=== PATIENT | male | born 1960 | race Caucasian/White ===

== ENCOUNTER 2017-05-20 13:39 | Emergency (ER) | payer MEDICARE ==
[2017-05-20] MEDS ORDERED: ISOVUE-370 76%-LOCM 1 ML ONE (13:55)
[2017-05-20 14:28] LABS: #Basophils 0.1 thou/uL (0.0-0.2); #Eosinphils 0.3 thou/uL (0.0-0.7); #Lymphocytes 2.1 thou/uL (1.20-3.40); #Monocytes 0.6 thou/uL (0.11-0.59); #Neutrophils 4.4 thou/uL (1.40-6.50); %Basophils 0.9 % (0.0-1.0); %Eosinophils 4.1 % (0.0-10.0); %Monocytes 7.9 % (0.0-10.0); Hematocrit 46.7 % (42.0-52.0); Mean Platelet Volume 6.9 fL (7.4-10.4); Red Blood Cell (RBC) Count 5.04 mill/uL (4.70-6.10); White Blood Cell (WBC) Count 7.4 thou/uL (4.8-10.8)
[2017-05-20 14:33] LABS: PTT 30.7 SEC (22.9-36.1); Prothrombin Time 13.1 SEC (12.0-14.7)
[2017-05-20 14:43] LABS: Lactic Acid - Sepsis 1.3 mmol/L (0.5-2.2)
[2017-05-20 14:47] LABS: ALT (SGPT) 12 U/L (8-55); AST (SGOT) 12 U/L (5-34); Alkaline Phosphatase 160 U/L (40-150); Anion Gap 11 mmol/L (10-20); BUN (Urea Nitrogen) 17 mg/dL (8.4-25.7); Bilirubin, Total 0.3 mg/dL (0.2-1.2); Calc. Creatinine Clearance 0 mL/min (70-130); Calcium 9.6 mg/dL (7.8-10.44); Carbon Dioxide 27 mmol/L (22-29); Chloride 105 mmol/L (98-107); Estimated GFR-MDRD Greater than 90; Globulin 3.4 g/dL (2.4-3.5); Protein, Total 7.4 g/dL (6.0-8.3)
--- NOTE | 2017-05-20 17:13 | CT ---
CT OF BRAIN WITHOUT AND WITH CONTRAST 05/20/17 COMPARISON: None. HISTORY: Fever and lesion on scalp for several months. TECHNIQUE: Multiple contiguous axial images were obtained in a CT of the brain without and with IV contrast. FINDINGS: There is encephalomalacia in the right parietal lobe. No abnormal intracranial enhancement is seen. T here are scattered hypodensities in the subcortical and periventricular white matter likely secondary to small vessel ischemic disease. There is no evidence of hydrocephalus, intracranial hemorrhage, or extra-axial fluid collection. Postsurgical changes are seen in the right parietal calvarium. No enhancing scalp masses are seen. Th e visualized paranasal sinuses and mastoid air cells are well aerated. IMPRESSION: Postsurgical changes of the right parietal region with right parietal encephalomalacia. No acute intr acranial process is identified. POS: [facility]
== END 2017-05-20 22:04 ==
LOC: ERS 13:39
DX: L98.9 Disorder of the skin and subcutaneous tissue, unspecified (principal); K21.9 Gastro-esophageal reflux disease without esophagitis; F32.9 Major depressive disorder, single episode, unspecified; I25.2 Old myocardial infarction; E78.5 Hyperlipidemia, unspecified
CPT/HCPCS: 36415; 70470; 80053; 83605; 85025; 85610; 85730; 96360; 96361

== ENCOUNTER 2017-07-15 16:58 | Emergency (ER) | payer MEDICARE ==
--- NOTE | 2017-07-15 18:43 | RAD ---
AP PELVIS: 07/15/17 HISTORY: Fall. Found down. Pelvic pain. The pelvis appears intact. No evidence of fracture identified. Femoral necks are not adequately evalu ated due to poor positioning. IMPRESSION: No acute fracture identified. POS: [facility]
== END 2017-07-15 20:47 | disposition home or self-care (01) ==
LOC: ERS 16:58
DX: S70.01XA Contusion of right hip, initial encounter (principal); I25.2 Old myocardial infarction; K21.9 Gastro-esophageal reflux disease without esophagitis; E78.5 Hyperlipidemia, unspecified; I10 Essential (primary) hypertension; M62.838 Other muscle spasm; F32.9 Major depressive disorder, single episode, unspecified; K59.00 Constipation, unspecified; W06.XXXA Fall from bed, initial encounter
CPT/HCPCS: 72170

== ENCOUNTER 2017-09-23 16:40 | Emergency (ER) | payer MEDICARE, OTHER ==
[2017-09-23 18:22] LABS: #Basophils 0.1 thou/uL (0.0-0.2); #Eosinphils 0.2 thou/uL (0.0-0.7); #Lymphocytes 1.5 thou/uL (1.20-3.40); #Monocytes 0.6 thou/uL (0.11-0.59); #Neutrophils 6.3 thou/uL (1.40-6.50); %Basophils 0.8 % (0.0-1.0); %Eosinophils 2.6 % (0.0-10.0); %Lymphocytes 16.9 % (21.0-51.0); %Monocytes 7.1 % (0.0-10.0); %Neutrophils 72.5 % (42.0-75.0); Hemoglobin 14.4 g/dL (14.0-18.0); Mean Corpuscular Volume 88.3 fl (80.0-94.0); Mean Platelet Volume 6.8 fL (7.4-10.4); Platelet Count 250 thou/uL (130-400); RBC Distribution Width 12.7 % (11.5-14.5); Red Blood Cell (RBC) Count 4.81 mill/uL (4.70-6.10); White Blood Cell (WBC) Count 8.6 thou/uL (4.8-10.8)
[2017-09-23] MEDS ORDERED: Lorazepam 2 MG/ML VIAL ONE (18:34)
[2017-09-23 18:37] LABS: ALT (SGPT) 15 U/L (8-55); AST (SGOT) 18 U/L (5-34); Albumin 4.1 g/dL (3.5-5.0); Alkaline Phosphatase 140 U/L (40-150); Anion Gap 13 mmol/L (10-20); BUN (Urea Nitrogen) 14 mg/dL (8.4-25.7); Bilirubin, Total 0.2 mg/dL (0.2-1.2); Calc. Creatinine Clearance 0 mL/min (70-130); Calcium 9.4 mg/dL (7.8-10.44); Carbon Dioxide 24 mmol/L (22-29); Chloride 106 mmol/L (98-107); Estimated GFR-MDRD Greater than 90; Glucose 112 mg/dL (70-105); Protein, Total 7.1 g/dL (6.0-8.3); Sodium 139 mmol/L (136-145)
[2017-09-23] MEDS ORDERED: Adacel (T-DAP) 0.5 ML VIAL ONE (20:11)
[2017-09-23] MEDS ORDERED: Lidocaine 1% w/Epinephrine 1:100K 20 ML VIAL ONE (20:13)
--- NOTE | 2017-09-23 20:45 | RAD ---
UPRIGHT PORTABLE CHEST ONE VIEW: HISTORY: A 57-year-old male with a history of a fall out of bed. COMPARISON: 03/13/2016 FINDINGS: Inspiration is less than optimal with some minimal linear and parenchymal changes in both infrahilar regions and in the lung bases, having more the appearance of subsegmental atelectasis, although the p ossibility of some mild bibasilar pneumonitis cannot be excluded. No significant confluent process. No cardiomegaly or pleural effusion. IMPRESSION: Poor inspiration bilaterally with minimal horizontal linear and parenchymal changes in the infrahilar regions and lung bases, having more the appearance of subsegmental atelectasis. No pneumothorax or pleural effusion. No confluent pneumonia. POS: [facility]
--- NOTE | 2017-09-23 20:50 | CT ---
CERVICAL SPINE CT SCAN WITHOUT IV CONTRAST: 09/23/17 HISTORY: 57-year old male with history of fall landing on right side with facial contusions and concern for ce rvical spine injury. COMPARISON: 11/15/15. Multilevel cervical disc osteophytosis particularly at C6-C7 with some at least moderate canal, later al recess, and foraminal stenosis. No evidence for acute fracture or dislocation. Stable appearance f rom the prior study. IMPRESSION: Stable cervical spondylosis, most marked at C6-C7. No acute fracture or dislocation. POS: [facility]
--- NOTE | 2017-09-23 20:51 | CT ---
BRAIN CT WITHOUT IV CONTRAST: HISTORY: A 57-year-old male with a history of a fall at the rehab, landing on the right side, with facial cont usions. COMPARISON: 05/28/2016 FINDINGS: Old right parietal craniotomy change. 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 No focal mass or midline shift. No intraaxial or extraaxial hemorrhage. There is some minimal right frontal soft tissue swel ling. 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 No evidence for new mass or acute hemorrhage. Stable from prior study. POS: [facility]
--- NOTE | 2017-09-23 20:54 | CT ---
FACIAL BONE CT SCAN WITHOUT IV CONTRAST: 09/23/17 HISTORY: 57-year-old male with history of fall with facial lacerations and facial contusions. There is minimal soft tissue swelling over the forehead. No evidence for acute facial bone fracture. The orbits appear intact. Zygomatic arches appear intact. The mandible appears intact. IMPRESSION: No evidence for acute facial bone fracture. Minimal soft tissue swelling over the forearm. POS: [facility]
== END 2017-09-23 22:53 | disposition home or self-care (01) ==
LOC: ERS 16:40
DX: S01.81XA Laceration without foreign body of other part of head, initial encounter (principal); I25.2 Old myocardial infarction; K21.9 Gastro-esophageal reflux disease without esophagitis; E78.5 Hyperlipidemia, unspecified; G40.909 Epilepsy, unspecified, not intractable, without status epilepticus; I10 Essential (primary) hypertension; F32.9 Major depressive disorder, single episode, unspecified; Z79.891 Long term (current) use of opiate analgesic; Z79.899 Other long term (current) drug therapy; W06.XXXA Fall from bed, initial encounter
CPT/HCPCS: 12011; 70450; 70486; 71045; 72125; 80053; 85025; 90471; 90715; 93005; 96361; 96374; J2001; J2060

== ENCOUNTER 2017-11-12 11:04 | Emergency (ER) | payer MEDICARE ==
[2017-11-12 11:55] LABS: #Basophils 0.1 thou/uL (0.0-0.2); #Eosinphils 0.4 thou/uL (0.0-0.7); #Lymphocytes 1.6 thou/uL (1.20-3.40); #Monocytes 0.8 thou/uL (0.11-0.59); #Neutrophils 6.4 thou/uL (1.40-6.50); %Basophils 0.8 % (0.0-1.0); %Eosinophils 4.4 % (0.0-10.0); %Lymphocytes 16.9 % (21.0-51.0); %Monocytes 8.1 % (0.0-10.0); %Neutrophils 69.7 % (42.0-75.0); Hemoglobin 14.7 g/dL (14.0-18.0); Mean Corpuscular HGB CONC 32.5 g/dL (32.0-36.0); Mean Corpuscular Hemoglobin 28.6 pg (27.0-31.0); Mean Corpuscular Volume 87.8 fl (80.0-94.0); Mean Platelet Volume 7.1 fL (7.4-10.4); Platelet Count 282 thou/uL (130-400); RBC Distribution Width 13.1 % (11.5-14.5); Red Blood Cell (RBC) Count 5.16 mill/uL (4.70-6.10); White Blood Cell (WBC) Count 9.2 thou/uL (4.8-10.8)
[2017-11-12 12:11] LABS: ALT (SGPT) 16 U/L (8-55); AST (SGOT) 21 U/L (5-34); Albumin 3.9 g/dL (3.5-5.0); Alkaline Phosphatase 136 U/L (40-150); Anion Gap 14 mmol/L (10-20); BUN (Urea Nitrogen) 14 mg/dL (8.4-25.7); Bilirubin, Total 0.3 mg/dL (0.2-1.2); Calc. Creatinine Clearance 0 mL/min (70-130); Calcium 9.3 mg/dL (7.8-10.44); Carbon Dioxide 22 mmol/L (22-29); Chloride 105 mmol/L (98-107); Estimated GFR-MDRD Greater than 90; Globulin 3.4 g/dL (2.4-3.5); Glucose 137 mg/dL (70-105); Potassium 3.8 mmol/L (3.5-5.1); Protein, Total 7.3 g/dL (6.0-8.3); Sodium 137 mmol/L (136-145)
== END 2017-11-12 14:47 | disposition home or self-care (01) ==
LOC: ERS 11:04
DX: R56.9 Unspecified convulsions (principal); I25.2 Old myocardial infarction; I10 Essential (primary) hypertension; F32.9 Major depressive disorder, single episode, unspecified; K21.9 Gastro-esophageal reflux disease without esophagitis; E78.5 Hyperlipidemia, unspecified; Z79.899 Other long term (current) drug therapy; Z79.82 Long term (current) use of aspirin
CPT/HCPCS: 36415; 80053; 85025; 93005

== ENCOUNTER 2018-01-24 08:56 | Inpatient (IN) | payer MEDICARE, MEDICAID ==
[2018-01-24] MEDS ORDERED: Piperacillin/Tazobactam 3.375 GM VIAL ONE (09:21)
[2018-01-24] MEDS ORDERED: Acetaminophen 650 MG Suppository ONE (09:27)
[2018-01-24 09:46] LABS: Band 3 % (5-11); Lymphocytes 7 % (21-51); MDiff Complete? YES; Mean Corpuscular HGB CONC 34.5 g/dL (32.0-36.0); Mean Corpuscular Hemoglobin 30.1 pg (27.0-31.0); Mean Corpuscular Volume 87.3 fL (78.0-98.0); Mean Platelet Volume 6.4 fL (7.4-10.4); Monocytes 2 % (0-10); Neutrophil 87 % (42-75); Platelet Count 304 thou/uL (130-400); Red Blood Cell (RBC) Count 4.98 mill/uL (4.70-6.10); White Blood Cell (WBC) Count 9.4 thou/uL (4.8-10.8)
[2018-01-24 09:52] LABS: ALT (SGPT) 36 U/L (8-55); AST (SGOT) 32 U/L (5-34); Albumin 4.4 g/dL (3.5-5.0); Alkaline Phosphatase 217 U/L (40-150); Anion Gap 17 mmol/L (10-20); BUN (Urea Nitrogen) 10 mg/dL (8.4-25.7); Bilirubin, Total 0.7 mg/dL (0.2-1.2); CK (CPK) 47 U/L (30-200); Calc. Creatinine Clearance 0 mL/min (70-130); Calcium 9.7 mg/dL (7.8-10.44); Carbon Dioxide 20 mmol/L (22-29); Chloride 98 mmol/L (98-107); Estimated GFR-MDRD Greater than 90; Globulin 3.9 g/dL (2.4-3.5); Glucose 159 mg/dL (70-105); Potassium 4.2 mmol/L (3.5-5.1); Protein, Total 8.3 g/dL (6.0-8.3); Sodium 131 mmol/L (136-145)
[2018-01-24 09:59] LABS: Bilirubin Negative (Negative); Blood, Urine Negative (Negative); Clarity CLEAR (Clear); Glucose, Urine (Dipstick) Negative (Negative); Leukocyte Negative (Negative); Nitrite Negative (Negative); Protein, Urine (Dipstick) Trace mg/dL (Neg-Trace); Specific Gravity, Urine 1.022 (1.002-1.036); pH, Urine 6.5 (5.0-9.0)
[2018-01-24 10:02] LABS: CKMB 0.7 ng/mL (0-6.6); Troponin I 0.014 ng/mL (< 0.028)
--- NOTE | 2018-01-24 10:38 | RAD ---
SINGLE VIEW CHEST: Date: 01/24/18 COMPARISON: 09/23/17. HISTORY: Fever and altered mental status. Tachycardia. FINDINGS: Single view of the chest shows a normal sized cardiomediastinal silhouette. There is no evidence of c onsolidation, mass, or pleural effusion. The bones are unremarkable. IMPRESSION: No evidence of acute cardiopulmonary disease. POS: [facility]
--- NOTE | 2018-01-24 10:49 | CT ---
CT OF THE BRAIN WITHOUT CONTRAST: Date: 01/24/18 COMPARISON: 09/23/17. HISTORY: Altered mental status. TECHNIQUE: Multiple contiguous axial images were obtained in a CT of the brain without contrast. FINDINGS: There is a remote infarction in the right parietooccipital region. Scattered hypodensities in subcort ical and periventricular white matter are likely secondary to small vessel ischemic disease. No new l arge confluent infarction is seen. There is no evidence of hydrocephalus, intracranial hemorrhage, or extra-axial fluid collection. Postsurgical changes are seen in the right parietal calvarium. The paranasal sinuses are well aerated . IMPRESSION: No evidence of acute intracranial abnormality. POS: [facility]
[2018-01-24] MEDS ORDERED: Lorazepam 2 MG/ML VIAL ONE (11:32)
[2018-01-24] MEDS ORDERED: Vancomycin HCl 1 GM in Premix Bag 1 BAG IVPB SCH (13:15)
[2018-01-24 13:34] LABS: CRP (Inflammatory) 14.42 mg/dL (= or < 0.5); Phosphorus 3.4 mg/dL (2.3-4.7)
--- NOTE | 2018-01-24 14:50 | CT ---
CT OF THE ABDOMEN AND PELVIS WITHOUT CONTRAST: Date: 01/24/18 COMPARISON: 10/08/15. HISTORY: Altered mental status. TECHNIQUE: Multiple contiguous axial images were obtained in a CT of the abdomen and pelvis without contrast. Co asya reformats were performed. FINDINGS: The liver, gallbladder, kidneys, spleen, and pancreas are unremarkable, although evaluation is limite d on this noncontrast examination. No free air, free fluid, or stranding changes are seen in the abdo men or pelvis. The large and small bowel are unremarkable. The appendix is normal. No abdominal or pelvic lymphadeno william are seen. Postsurgical changes are seen in the spine. Atelectasis is seen in the lung bases. The abdominal wall soft tissues are unremarkable. IMPRESSION: No evidence of acute intra-abdominal/pelvic abnormality. POS: [facility]
[2018-01-24] MEDS: Piperacillin/Tazobactam 3.375 GM in Sodium Chloride 0.9% 100 ML IVPB SCH ×2 (16:57→20:37)
[2018-01-24] MEDS: Dextrose 5 % And 0.9 % NaCl 1,000 ML IV SCH (19:04)
[2018-01-24] MEDS: Acetaminophen 325 MG Suppository PR PRN (19:05)
[2018-01-24] MEDS: Vancomycin HCl 1.25 GM in Sodium Chloride 0.9% 250 ML 250 ML IVPB SCH (21:59)
[2018-01-24] MEDS: Famotidine/PF 20 mg/2ml Vial SLOW IVP SCH (22:21)
[2018-01-24] MEDS: lamoTRIgine 100 MG TAB PO SCH (22:21)
[2018-01-24] MEDS: Atorvastatin Calcium 10 MG TAB PO SCH (22:21)
[2018-01-24] MEDS: Tamsulosin HCl 0.4 MG CAP PO SCH (22:21)
[2018-01-24] MEDS: ALPRAZolam 0.5 MG TAB PO SCH (22:21)
--- NOTE | 2018-01-24 23:23 | HP ---
CHIEF COMPLAINT: Altered mental status. HISTORY OF PRESENT ILLNESS: This patient is a 57-year-old male with a history of chronic mental stat us issues secondary to prior brain cancer with multiple craniotomies. Patient is unfortunately profo undly debilitated living in a long term facility. The patient was noted to be restless through th e night. He was moaning and not sleeping, which was apparently unusual for him. This morning, they checked temperature on him and it was elevated over 101, so [facility] The patient is nonverbal and no further history can be obtained from him specific ally. The patient has been admitted here previously with some altered mental status. He has had delroy e challenging episodes to determine the source of his infectious etiology. REVIEW OF SYSTEMS: Unobtainable. 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 FAMILY HISTORY: Unknown. SOCIAL HISTORY: Patient lives at [facility]. ALLERGIES: None. MEDICATIONS: Tylenol p.r.n., simethicone p.r.n., metoprolol 25 mg p.o. daily, MiraLax 17 grams p.o. daily, ferrous sulfate 325 p.o. daily, Lamictal 200 mg b.i.d., Seroquel 100 mg b.i.d., Protonix 20 mg every day, Lipitor 10 mg at bedtime, Flomax 0.4 mg 1 p.o. at bedtime, aspirin 81 mg every day, Cymba lta 60 mg p.o. daily, multivitamin 1 p.o. daily. PHYSICAL EXAMINATION: VITAL SIGNS: Temperature is 100, pulse 98, respirations 16, O2 sat 93%, blood pressure is 141/83. GENERAL APPEARANCE: Age appropriate male. He is currently nonverbal. He is not interacting to exte rnal stimuli much. He is supine in the bed. He is moving spontaneously, looks slightly agitated and groaning a bit at times. HEENT: Appears to have no OP lesions. He does have a Band-Aid on the top of the head where he has a lesion that appears to be draining. NECK: Supple and symmetric without lymphadenopathy. CARDIOVASCULAR: Regular without murmurs but is borderline tachycardic. CHEST: Lungs are clear to auscultation bilaterally with good chest wall expansion and air exchange. ABDOMEN: Soft, nontender, nondistended, no masses, no organomegaly. EXTREMITIES: Warm and dry without edema. LABORATORY DATA: White count 9.4, hemoglobin 15.0, platelet count 304. Sodium 131, potassium 4.2, c hloride 98, BUN 10, creatinine 0.74, glucose 159. Lactic acid 1.4, calcium 9.7, mag 2.0, phos is 3.4 , AST 32, ALT 36, alkaline phosphatase 217. CRP is 14.4, albumin 4.4. Urinalysis shows some ketones . Beta hydroxybutyrate is positive. CT abdomen and pelvis finds no acute findings. CT head shows p ostsurgical changes in the right parietal calvarium, some small vessel ischemic disease, but otherwis e no evidence of acute intracranial abnormality. Chest x-ray is clear. ASSESSMENT AND PLAN: 1. Febrile illness. The patient appears to have some form of infection somewhere. At this point, h is urine looks relatively clear. Chest x-ray is clear. CT abdomen and pelvis is clear and CT of the of his head is clear. That was a consideration for a lumbar puncture in the emergency department; h owever, the patient has severe scarring over the lumbar spine from previous surgeries; therefore, thi s was aborted. The patient will be on broad spectrum antibiotics with vancomycin and Zosyn. We will consult Infectious Disease to help sort this out. He does have blood cultures pending and cultures from this lesion on his right parietal scalp, pending. 2. Altered mental status secondary to the febrile illness. 3. History of dementia secondary to brain tumors requiring multiple craniotomy surgeries. The patie nt is on number of psychoactive medications that we will continue. 4. History of seizure disorder and we will attempt to keep him on anti-seizure medication as well. If he is not able to take p.o.'s, may need to load him with some IV Keppra soon. 5. History of chronic pain syndrome, on Cymbalta. 6. History of hyperlipidemia. We will continue statin when he is able to take p.o.'s 7. Hypertension, stable. 8. Discussed the case with the patient's brother, Momo, at [phone]. I made him aware of the shani pandey's presence here at the hospital. He was very appreciative of any updates in information. 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 He did reaffirm the patient's DNR status.
[2018-01-25] MEDS: Piperacillin/Tazobactam 3.375 GM in Sodium Chloride 0.9% 100 ML IVPB SCH ×4 (02:16→20:19)
[2018-01-25] MEDS: Dextrose 5 % And 0.9 % NaCl 1,000 ML IV SCH ×3 (02:23→17:29)
[2018-01-25] MEDS: Acetaminophen 325 MG Suppository PR PRN ×4 (04:46→21:35)
[2018-01-25 06:04] LABS: #Eosinphils 0.1 thou/uL (0.0-0.7); #Lymphocytes 0.8 thou/uL (1.20-3.40); #Monocytes 0.9 thou/uL (0.11-0.59); #Neutrophils 7.6 thou/uL (1.40-6.50); %Eosinophils 0.5 % (0.0-10.0); %Lymphocytes 8.6 % (21.0-51.0); %Monocytes 9.8 % (0.0-10.0); Hemoglobin 13.1 g/dL (14.0-18.0); Mean Corpuscular HGB CONC 33.2 g/dL (32.0-36.0); Mean Corpuscular Hemoglobin 29.1 pg (27.0-31.0); Mean Corpuscular Volume 87.8 fL (78.0-98.0); Mean Platelet Volume 6.7 fL (7.4-10.4); Platelet Count 224 thou/uL (130-400); RBC Distribution Width 11.9 % (11.5-14.5); Red Blood Cell (RBC) Count 4.51 mill/uL (4.70-6.10); White Blood Cell (WBC) Count 9.4 thou/uL (4.8-10.8)
[2018-01-25 07:09] LABS: Anion Gap 17 mmol/L (10-20); BUN (Urea Nitrogen) 8 mg/dL (8.4-25.7); Calc. Creatinine Clearance 141 mL/min (70-130); Calcium 9.1 mg/dL (7.8-10.44); Carbon Dioxide 19 mmol/L (22-29); Chloride 99 mmol/L (98-107); Estimated GFR-MDRD Greater than 90; Glucose 198 mg/dL (70-105); Potassium 3.6 mmol/L (3.5-5.1); Sodium 131 mmol/L (136-145)
[2018-01-25] MEDS: Metoprolol Tartrate 25 MG TAB PO SCH (09:57)
[2018-01-25] MEDS: Enoxaparin Sodium 40 MG/0.4 ML SYRINGE SC SCH (10:00)
[2018-01-25] MEDS: lamoTRIgine 100 MG TAB PO SCH ×2 (10:01→20:19)
[2018-01-25] MEDS ORDERED: ISOVUE-370 76%-LOCM 1 ML ONE (10:06)
[2018-01-25] MEDS: Aspirin 325 MG TAB PO SCH (10:13)
[2018-01-25] MEDS: Polyethylene Glycol 3350 17 GM Packet PO SCH (10:13)
[2018-01-25] MEDS: DULoxetine 60 MG CAP PO SCH (10:18)
[2018-01-25] MEDS: ALPRAZolam 0.5 MG TAB PO SCH ×2 (10:19→20:20)
[2018-01-25 10:26] LABS: CKMB 1.1 ng/mL (0-6.6); Troponin I 0.013 ng/mL (< 0.028)
--- NOTE | 2018-01-25 13:05 | RAD ---
ABDOMEN ONE VIEW: History: 57-year-old male with history of fall with abdominal pain. NG tube placement for position evaluation. FINDINGS: There is an NG tube noted with the tip and side hole seen within the stomach. No overt bowel obstruct ion. IMPRESSION: NG tube in satisfactory location. POS: [facility]
[2018-01-25] MEDS: Vancomycin HCl 1.25 GM in Sodium Chloride 0.9% 250 ML 250 ML IVPB SCH ×2 (13:37→21:35)
[2018-01-25] MEDS: Famotidine/PF 20 mg/2ml Vial SLOW IVP SCH ×2 (13:38→20:24)
--- NOTE | 2018-01-25 15:49 | PDOC.PN ---
- Subjective Encounter Start Date: 01/25/18 Encounter Start Time: 09:30 -: non-verbal, old records requested/rev Pt seen and examined, chart reviewed in its entirety, this is my first visit with this patient No F/C, no N/V/d/c, no CP or SOB, no cough, no GI bleeding went into SVT earlier, see Code green record. adenosine give,m slowed down to 130s, morning meds given after NGT replaced. ROs not obtainable - Objective Resuscitation Status: Resuscitation Status DNR:Do Not Resuscitate MAR Reviewed: Yes Vital Signs & Weight: Vital Signs (12 hours) Temp Temp Pulse Pulse Pulse Pulse Pulse 01/25/18 14:16 108 H 01/25/18 13:39 102.5 F H 109 H 01/25/18 10:58 120 H 01/25/18 09:38 101.4 F H 220 H 226 H 131 H 130 H 01/25/18 08:59 101.4 F H 109 H 01/25/18 07:18 01/25/18 07:13 100 01/25/18 06:07 100.5 F H 01/25/18 04:15 01/25/18 04:14 01/25/18 04:00 101.8 F H 106 H Pulse Resp Resp Resp Resp Resp BP 01/25/18 14:16 20 01/25/18 13:39 20 01/25/18 10:58 16 01/25/18 09:38 112 H 26 H 28 H 26 H 26 H 114/72 01/25/18 08:59 20 01/25/18 07:18 01/25/18 07:13 14 01/25/18 06:07 01/25/18 04:15 01/25/18 04:14 01/25/18 04:00 20 BP BP BP BP BP Pulse Ox Pulse Ox 01/25/18 14:16 96 01/25/18 13:39 136/85 98 01/25/18 10:58 95 01/25/18 09:38 137/63 137/80 138/91 H 133/79 96 01/25/18 08:59 148/77 H 96 01/25/18 07:18 90 L 01/25/18 07:13 90 L 01/25/18 06:07 01/25/18 04:15 92 L 01/25/18 04:14 92 L 01/25/18 04:00 135/77 100 Pulse Ox Pulse Ox Pulse Ox Pulse Ox 01/25/18 14:16 01/25/18 13:39 01/25/18 10:58 01/25/18 09:38 92 L 98 99 99 01/25/18 08:59 01/25/18 07:18 01/25/18 07:13 01/25/18 06:07 01/25/18 04:15 01/25/18 04:14 01/25/18 04:00 Weight Weight 176 lb 8 oz I&O: 01/24/18 01/25/18 01/26/18 06:59 06:59 06:59 Intake Total 1828 Balance 1828 Result Diagrams: 01/25/18 05:27 01/25/18 05:27 Additional Labs: Accuchecks 01/25/18 09:42 POC Glucose 163 H Radiology Reviewed by me: Yes EKG Reviewed by me: Yes Phys Exam - Physical Examination Constitutional: NAD HEENT: PERRLA, moist MMs, sclera anicteric, oral pharynx no lesions Neck: no nodes, no JVD, supple, full ROM Respiratory: no wheezing, no rhonchi tachy, regular, no murmurs Gastrointestinal: soft, non-tender, no distention, positive bowel sounds Musculoskeletal: pulses present, edema present Lymphatic: no nodes Deviation from normal: screams with any stuimuli Skin: no rash, normal turgor, cap refill <2 seconds Dx/Plan (1) Acute metabolic encephalopathy Code(s): G93.41 - METABOLIC ENCEPHALOPATHY Status: Acute (2) SVT (supraventricular tachycardia) Code(s): I47.1 - SUPRAVENTRICULAR TACHYCARDIA Status: Acute (3) BPH (benign prostatic hyperplasia) Code(s): N40.0 - BENIGN PROSTATIC HYPERPLASIA WITHOUT LOWER URINRY TRACT SYMP Status: Chronic Qualifiers: Lower urinary tract symptom presence: unspecified whether lower urinary tract symptoms present Qualified Code(s): N40.0 - Benign prostatic hyperplasia without lower urinary tract symptoms (4) Dehydration Code(s): E86.0 - DEHYDRATION Status: Resolved (5) Dysphagia Code(s): R13.10 - DYSPHAGIA, UNSPECIFIED Status: Acute Qualifiers: Dysphagia type: unspecified Qualified Code(s): R13.10 - Dysphagia, unspecified Comment: Failed speech eval.NPO for now except certain meds w purees (6) History of brain tumor Code(s): Z87.898 - PERSONAL HISTORY OF OTHER SPECIFIED CONDITIONS Status: Chronic (7) History of seizure disorder Code(s): Z86.69 - PERSONAL HISTORY OF DIS OF THE NERVOUS SYS AND SENSE ORGANS Status: Chronic (8) History of traumatic brain injury Code(s): Z87.820 - PERSONAL HISTORY OF TRAUMATIC BRAIN INJURY Status: Chronic - Plan cont current plan of care, PT/OT, speech therapy, respiratory therapy * .
--- NOTE | 2018-01-25 16:53 | CT ---
CT ANGIO CHEST WITH CONTRAST: Date: 01/25/18 Multiple axial images obtained through chest following a pulmonary angio protocol with multiplanar re construction and 3D postprocessing. INDICATION: Shortness of breath. Hypoxemia with fever. Assess for pulmonary embolus. FINDINGS: The pulmonary arteries are suboptimally opacified, degrading the study. Artifact due to arm position also degrades exam. No evidence of proximal pulmonary embolus identified. There is cardiomegaly and mild vascular congestion. Suggestion of interstitial congestion. Mild bibas ilar atelectasis. No significant effusion. No focal infiltrate identified. Mediastinum unremarkable. IMPRESSION: 1. Suboptimal exam as described above. There is no evidence of proximal pulmonary embolus. No eviden ce of thoracic aortic dissection. 2. Evidence of vascular congestion and possible interstitial edema. Mild bibasilar atelectasis. POS: [facility]
--- NOTE | 2018-01-25 19:20 | CON ---
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 The patient developed significant functional impairment and has been a nursin home patient for the past many years. I saw him in 10/2015, when he presented with change in respo nsiveness, yelling, screaming and a temperature elevation. Workup including CT scans and cultures wa s unremarkable and he was discharged on oral levofloxacin. In 03/2016, he was readmitted, this time he was brought in with some issues related to the impulse control with yelling and screaming agitatio n and there were some questions related to the abnormal urinalysis. The CT in 10/2015 did show mild urinary bladder wall thickening and a large amount of stool in the rectal vault. The second time louann und, he was discharged on Xanax, Cymbalta, Lipitor, Purchase, metoprolol, multivitamins, polyethylene gl ycol, Seroquel, Flomax, and Lamictal. Since then he was not admitted until now and this time, I spok e with the nurse and according to her, he again was yelling apparently was directing their attention to his abdomen, complaining of pain. According to her that he had no evidence of respiratory issues, no aspiration. He voids in the diaper. No urinary issues were noticed. He had not displayed diarr hea. The temperature went up to 101 and was therefore transferred over here. Initial findings inclu ded pulse 98, temperature 100, and O2 sat 93%. White cell count 9.4, hemoglobin 15, creatinine 0.74. Lactic acid 1.4. CT of abdomen and pelvis demonstrated no significant abnormalities. I reviewed t he CT and there is one feature that was not mentioned, but his urinary bladder appeared distended. C urrently, he is obtunded. When I asked a few questions, he answered them in monosyllabic form. I co uld not really understand fully with the patient was trying to communicate, I could not obtain reliab le account from him. According to the nurse in the long-term that had been no reported seizure ac tivity and other system review is as above. 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 Blindness, subarachnoid hemo rrhage. FAMILY HISTORY: Not available. SOCIAL HISTORY: [facility]. ALLERGIES: None. CURRENT MEDICATIONS: Tylenol, DuoNeb, Xanax, aspirin, Lipitor, Cymbalta, Lovenox, Lamictal, Lopresso r, Zosyn, and vancomycin. PHYSICAL EXAMINATION: VITAL SIGNS: T-max 100 and now 102.5, blood pressure 114/72, pulse 108. SKIN: Remarkable for this area in the scalp with dark red discoloration of the central pustule with somewhat purulent drainage in the right posterior aspect of his scalp. The patient does not have a g astrostomy or a tracheostomy and does not have a Arana catheter. Peripheral IV access. No other are as of skin breakdown, no lymphadenopathy. HEENT: Ocular movements shows conjugate eye movements. No nystagmus. The patient has quite signifi cant conjunctivitis and blepharitis. Nasal passages were patent. Oral cavity is difficult to examin e since patient is an element of trismus, would not open fully the oral cavity, quite a bit few teeth in place with quite a bit of decay. NECK: Stiff to all directions. LUNGS: With symmetric air entry with diminished breath sounds at the bases. HEART: S1, S2 with regular rate, no obvious murmurs. No S3. ABDOMEN: Not distended or tender. Question of bladder distention. EXTREMITIES: No joint inflammatory activity. Hyperreflexia in lower extremities with persistent minor nus upon extension of right and left feet. Pulses 1+ in dorsalis pedis. NEUROLOGIC: He is awake, but does not establish eye contact. He will try to reply to certain questi ons, but it is difficult to understand his spoken word. LABORATORY DATA: White cell count 9.4, hemoglobin 15, platelets 304 with 87% neutrophils and sodium 131, creatinine 0.67. Liver profile with alkaline phosphatase 217. AST and ALT normal. CK 47, albu min 4.4. Urinalysis was normal. Microbiology with Staph aureus from the scalp wound culture. Previ ous culture from 08/2016 showed MRSA. Chest x-ray from this visit with no infiltrates noted. ASSESSMENT: 1. Severe neurological impairment following surgical resection and chemoradiation therapy for manage ment of astrocytoma in 1993. 2. jail state. 3. Frequent admissions with fever without previous well established etiology. 4. Bladder distention on CT scan. 5. Reported behavior abnormality associated with screaming and yelling and possible abdominal pain. 6. Fever. DISCUSSION: The differential diagnosis includes urinary retention with invasive UTI, despite the nor mal urinalysis versus thromboembolism versus a complication related to previous craniectomies with a skull osteomyelitis. Workup will proceed with a bladder ultrasound done at the bedside with a bladde r scan may consider a CT chest angiogram and then a CT of head to evaluate the skull. This to see if there is any evidence of cortical bone erosion associated with chronic associated with that chronic ulcer in the right side. Another possibility which would include neuroleptic malignant syndrome appe ars to be less likely, but not ruled out at this point in time.
[2018-01-25 20:06] LABS: Vancomycin, Trough 15.6 ug/mL
[2018-01-25] MEDS: Tamsulosin HCl 0.4 MG CAP PO SCH (20:19)
[2018-01-25] MEDS: Atorvastatin Calcium 10 MG TAB PO SCH (20:19)
[2018-01-26] MEDS: Acetaminophen 325 MG Suppository PR PRN ×2 (02:16→23:54)
[2018-01-26] MEDS: Dextrose 5 % And 0.9 % NaCl 1,000 ML IV SCH ×3 (02:17→17:13)
[2018-01-26] MEDS: Piperacillin/Tazobactam 3.375 GM in Sodium Chloride 0.9% 100 ML IVPB SCH ×4 (02:25→19:42)
[2018-01-26 05:18] LABS: #Lymphocytes 1.2 thou/uL (1.20-3.40); #Neutrophils 5.2 thou/uL (1.40-6.50); %Basophils 0.5 % (0.0-1.0); %Eosinophils 0.4 % (0.0-10.0); %Lymphocytes 15.6 % (21.0-51.0); %Monocytes 13.9 % (0.0-10.0); %Neutrophils 69.6 % (42.0-75.0); Hemoglobin 12.8 g/dL (14.0-18.0); Mean Corpuscular HGB CONC 34.9 g/dL (32.0-36.0); Mean Corpuscular Hemoglobin 30.5 pg (27.0-31.0); Mean Corpuscular Volume 87.2 fL (78.0-98.0); Platelet Count 239 thou/uL (130-400); White Blood Cell (WBC) Count 7.5 thou/uL (4.8-10.8)
[2018-01-26 05:33] LABS: Anion Gap 12 mmol/L (10-20); BUN (Urea Nitrogen) 5 mg/dL (8.4-25.7); Calc. Creatinine Clearance 147 mL/min (70-130); Calcium 8.6 mg/dL (7.8-10.44); Carbon Dioxide 20 mmol/L (22-29); Chloride 101 mmol/L (98-107); Estimated GFR-MDRD Greater than 90; Glucose 174 mg/dL (70-105); Magnesium 1.7 mg/dL (1.6-2.6); Potassium 3.2 mmol/L (3.5-5.1); Sodium 130 mmol/L (136-145)
--- NOTE | 2018-01-26 07:52 | PQF ---
CLINICAL DOCUMENTATION IMPROVEMENT CLARIFICATION FORM: ICD-10 Updated PLEASE DO AN ADDENDUM TO THE PROGRESS NOTE WITH ANY DOCUMENTATION UPDATES OR ADDITIONS AND CARRY THROUGH TO DC SUMMARY. THANK YOU. DATE: 01/26 ATTN: DR. GRACIE VEGA Please exercise your independent, professional judgment in responding to the clarification form. Clinical indicators are provided on the bottom of this form for your review. Please check appropriate box(es): [ ] Sepsis due to: (Pna, UTI, gangrenous gall bladder, etc.) [ ] Severe sepsis with acute organ dysfunction of: (Examples: respiratory failure, encephalopathy, acute kidney failure, other) [ ] Localized infection without sepsis [ ] Other diagnosis [ ] Unable to determine For continuity of documentation, please document condition throughout progress notes and discharge summary. Thank You. CLINICAL INDICATORS - SIGNS / SYMPTOMS / LABS ER PRESENTATION 01/24: ALTERED MENTAL STATUS T: 101.5 (R) HR: 118 RR: 26 CRP: 14.42 ER PHYSICIAN DIAGNOSES: SEPSIS, AMS ELEVATED GLUCOSE IN PATIENT WITH NO HISTORY OF DIABETES: 159, 198, 174 (01/24 - ) R PARIETAL SCALP WOUND CULTURE: PRELIMINARY: STAPHYLOCOCCUS AUREUS RISK FACTORS: FEVER R PARIETAL SCALP LESION, DRAINING METABOLIC ENCEPHALOPATHY (PN 01/25) TREATMENTS: IV ANTIBIOTICS (ZOSYN & VANCOMYCIN, 01/24 - PRESENT) IVF (D5 NS 01/24 - PRESENT) INFECTIOUS DX CONSULT THANK YOU! Beth (This form is maintained as a part of the permanent medical record) 2014 [employer]. All Rights Reserved Beth Whitten RN, [email or web address] Office: [phone] [facility]
[2018-01-26] MEDS: Vancomycin HCl 1.25 GM in Sodium Chloride 0.9% 250 ML 250 ML IVPB SCH ×2 (10:15→21:18)
[2018-01-26] MEDS: Enoxaparin Sodium 40 MG/0.4 ML SYRINGE SC SCH (10:35)
[2018-01-26] MEDS ORDERED: Famotidine/PF 20 mg/2ml Vial SLOW IVP SCH (10:45)
[2018-01-26] MEDS: Famotidine/PF 20 mg/2ml Vial SLOW IVP SCH ×2 (11:36→19:41)
--- NOTE | 2018-01-26 14:32 | PDOC.PN ---
- Subjective Encounter Start Date: 01/26/18 Encounter Start Time: 14:00 -: non-verbal follow up for metabolic encephalopathy, severe sepsis secondary to s aureus from scalp wound infection. No f/C, no n/V/d/C, no acute events other than pt felisa out NG tube and not being able to take po. ROs not obtainable HR better, but still in low 100s, sinus tachycardia - Objective Resuscitation Status: Resuscitation Status DNR:Do Not Resuscitate MAR Reviewed: Yes Vital Signs & Weight: Vital Signs (12 hours) Temp Pulse Resp BP Pulse Ox 01/26/18 11:11 102 H 21 H 01/26/18 10:35 98.1 F 108 H 24 H 129/86 98 01/26/18 08:10 95 01/26/18 08:07 98 20 01/26/18 08:00 99.5 F 101 H 20 136/84 96 01/26/18 05:03 101.3 F H 95 20 135/77 92 L 01/26/18 03:25 101.3 F H Weight Weight 175 lb 4.8 oz I&O: 01/25/18 01/26/18 01/27/18 06:59 06:59 06:59 Intake Total 1828 1171 Balance 1828 1171 Result Diagrams: 01/26/18 04:20 01/26/18 04:20 Radiology Reviewed by me: Yes EKG Reviewed by me: Yes Phys Exam - Physical Examination Constitutional: NAD HEENT: PERRLA, moist MMs, sclera anicteric, oral pharynx no lesions Neck: no nodes, no JVD, supple, full ROM Respiratory: no wheezing, no rhonchi tachy, regular, no murmurs Gastrointestinal: soft, non-tender, no distention, positive bowel sounds Musculoskeletal: pulses present, edema present Lymphatic: no nodes Skin: no rash, normal turgor, cap refill <2 seconds Dx/Plan (1) Acute metabolic encephalopathy Code(s): G93.41 - METABOLIC ENCEPHALOPATHY Status: Acute (2) SVT (supraventricular tachycardia) Code(s): I47.1 - SUPRAVENTRICULAR TACHYCARDIA Status: Acute (3) BPH (benign prostatic hyperplasia) Code(s): N40.0 - BENIGN PROSTATIC HYPERPLASIA WITHOUT LOWER URINRY TRACT SYMP Status: Chronic Qualifiers: Lower urinary tract symptom presence: unspecified whether lower urinary tract symptoms present Qualified Code(s): N40.0 - Benign prostatic hyperplasia without lower urinary tract symptoms (4) Dehydration Code(s): E86.0 - DEHYDRATION Status: Resolved (5) Dysphagia Code(s): R13.10 - DYSPHAGIA, UNSPECIFIED Status: Acute Qualifiers: Dysphagia type: unspecified Qualified Code(s): R13.10 - Dysphagia, unspecified Comment: Failed speech eval.NPO for now except certain meds w purees (6) History of brain tumor Code(s): Z87.898 - PERSONAL HISTORY OF OTHER SPECIFIED CONDITIONS Status: Chronic (7) History of seizure disorder Code(s): Z86.69 - PERSONAL HISTORY OF DIS OF THE NERVOUS SYS AND SENSE ORGANS Status: Chronic (8) History of traumatic brain injury Code(s): Z87.820 - PERSONAL HISTORY OF TRAUMATIC BRAIN INJURY Status: Chronic (9) Severe sepsis Code(s): A41.9 - SEPSIS, UNSPECIFIED ORGANISM; R65.20 - SEVERE SEPSIS WITHOUT SEPTIC SHOCK Status: Acute (10) Severe sepsis with acute organ dysfunction Code(s): A41.9 - SEPSIS, UNSPECIFIED ORGANISM; R65.20 - SEVERE SEPSIS WITHOUT SEPTIC SHOCK Status: Acute Comment: fever,t achycardia, bacterial infectio, metabolic encephalopathy. present on admit, improving. now afebrile, HR coming down, kaitlin abx, await ID and sens. Seen by ID, bone scan pending, looks like possible right posterior calvarium activity - Plan cont current plan of care, continue antibiotics, hospital social worker * .
--- NOTE | 2018-01-26 15:46 | NM ---
TRIPLE PHASE BONE SCAN OF THE SKULL: 01/26/18 RADIOPHARMACEUTICAL: 33 millicuries technetium 99m-MDP injected intravenously. 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 FINDINGS: Correlation is made with the CT brain scan of 01/24/18. No increased flow or blood pooling is seen in the bones of the skull. There is mildly increased uptak e noted in the region of the vertex on the delayed images corresponding to postop changes seen on the CT scan. IMPRESSION: No evidence of occipital osteomyelitis. POS: MANAS
[2018-01-26] MEDS: ALPRAZolam 0.5 MG TAB PO SCH (15:58)
[2018-01-26] MEDS: lamoTRIgine 100 MG TAB PO SCH (15:59)
[2018-01-26] MEDS: Metoprolol Tartrate 25 MG TAB PO SCH (15:59)
[2018-01-26] MEDS: Aspirin 325 MG TAB PO SCH (15:59)
[2018-01-26] MEDS: DULoxetine 60 MG CAP PO SCH (15:59)
[2018-01-26] MEDS: Potassium Chloride 20 MEQ TAB PER TUBE SCH (16:00)
[2018-01-26] MEDS: Polyethylene Glycol 3350 17 GM Packet PO SCH (16:00)
--- NOTE | 2018-01-26 19:30 | PRG ---
DATE OF SERVICE: 01/26/2018 SUBJECTIVE: Patient is not responsive as expected. OBJECTIVE: VITAL SIGNS: His vital signs showed a T-max of 102.5 on 01/25, yesterday was 102 at 2:00 a.m. and no w seems to have experienced a decrease in his temperature curve. He is still a bit tachycardic, BP 1 40/70. SKIN: His facial skin is flushed. He has got some areas of erythema in the anterior knees bilateral ly. Peripheral IV access. LUNGS: Symmetric with clear breath sounds. CARDIOVASCULAR: S1, S2, regular rate. ABDOMEN: Does not appear to be distended. Does not have a Arana catheter. The suprapubic area is s oft to palpation. Diffuse stiffness. LABORATORY DATA: White cell count 7.5, hemoglobin 12.8, platelets 239, 69% neutrophils. CK was 47. Urinalysis was normal. Bone scan did not show any areas of uptake in the skull region. CT chest an adrián with suboptimal technical quality. No evidence of proximal pulmonary embolism. There was vascul ar congestion and possible interstitial edema. An abdomen and pelvis CT with no abnormality noted. Microbiology study with Staph aureus from the scalp lesion. Two sets of blood cultures, no growth. Urine culture no growth. 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 The workup ordered thus far did not indicate any source for the inflammatory p rocess and the fever in the absence of neutrophil elevation or left shift, the possibility of quetiap ine associated neuroleptic malignant syndrome needs to be considered. It can occur with a quetiapine at steady state doses without any history of adjustment. May consider discontinuation of this agent and see if there is improvement in the recurrence of those syndromes.
[2018-01-26] MEDS ORDERED: Ziprasidone 20 MG VIAL IM PRN (20:46)
[2018-01-26] MEDS ORDERED: Benzocaine 20% Spray 60 ML CAN FS PRN (20:48)
[2018-01-26] MEDS ORDERED: Lidocaine 2% Jelly 5 ML TUBE TOP PRN (20:49)
[2018-01-27] MEDS: Potassium Chloride 20 MEQ TAB PER TUBE SCH (00:21)
[2018-01-27] MEDS: ALPRAZolam 0.5 MG TAB PO SCH ×3 (00:21→20:19)
[2018-01-27] MEDS: lamoTRIgine 100 MG TAB PO SCH ×3 (00:22→20:19)
[2018-01-27] MEDS: Tamsulosin HCl 0.4 MG CAP PO SCH ×2 (00:22→20:20)
[2018-01-27] MEDS: Atorvastatin Calcium 10 MG TAB PO SCH ×2 (00:22→20:19)
--- NOTE | 2018-01-27 00:47 | PDOC.EVN ---
Event Note - Event Note Event Note: RN called - NG could not be placed - attempted.
[2018-01-27] MEDS: Dextrose 5 % And 0.9 % NaCl 1,000 ML IV SCH ×3 (02:31→17:41)
[2018-01-27] MEDS: Piperacillin/Tazobactam 3.375 GM in Sodium Chloride 0.9% 100 ML IVPB SCH ×2 (03:37→08:55)
[2018-01-27] MEDS: Acetaminophen 325 MG Suppository PR PRN (03:42)
[2018-01-27 05:07] LABS: #Basophils 0.1 thou/uL (0.0-0.2); #Eosinphils 0.1 thou/uL (0.0-0.7); #Lymphocytes 1.4 thou/uL (1.20-3.40); #Monocytes 0.9 thou/uL (0.11-0.59); #Neutrophils 4.5 thou/uL (1.40-6.50); %Basophils 1.1 % (0.0-1.0); %Eosinophils 1.8 % (0.0-10.0); %Monocytes 12.5 % (0.0-10.0); %Neutrophils 64.6 % (42.0-75.0); Hemoglobin 12.6 g/dL (14.0-18.0); Mean Corpuscular HGB CONC 33.8 g/dL (32.0-36.0); Mean Corpuscular Hemoglobin 29.5 pg (27.0-31.0); Mean Corpuscular Volume 87.1 fL (78.0-98.0); Mean Platelet Volume 6.2 fL (7.4-10.4); Platelet Count 275 thou/uL (130-400); Red Blood Cell (RBC) Count 4.27 mill/uL (4.70-6.10)
[2018-01-27 05:22] LABS: Anion Gap 14 mmol/L (10-20); BUN (Urea Nitrogen) Less than 4 mg/dL (8.4-25.7); Calc. Creatinine Clearance 140 mL/min (70-130); Calcium 8.8 mg/dL (7.8-10.44); Carbon Dioxide 20 mmol/L (22-29); Chloride 102 mmol/L (98-107); Estimated GFR-MDRD Greater than 90; Glucose 173 mg/dL (70-105); Magnesium 1.9 mg/dL (1.6-2.6); Sodium 133 mmol/L (136-145)
[2018-01-27] MEDS: Vancomycin HCl 1.25 GM in Sodium Chloride 0.9% 250 ML 250 ML IVPB SCH ×2 (08:55→20:05)
[2018-01-27] MEDS: Enoxaparin Sodium 40 MG/0.4 ML SYRINGE SC SCH (08:56)
[2018-01-27] MEDS: Famotidine/PF 20 mg/2ml Vial SLOW IVP SCH ×2 (08:56→20:05)
[2018-01-27] MEDS: DULoxetine 60 MG CAP PO SCH (09:15)
[2018-01-27] MEDS: Aspirin 325 MG TAB PO SCH (09:15)
[2018-01-27] MEDS: Metoprolol Tartrate 25 MG TAB PO SCH (09:16)
[2018-01-27] MEDS: Polyethylene Glycol 3350 17 GM Packet PO SCH (09:19)
[2018-01-27] MEDS ORDERED: levETIRAcetam In NaCl (Iso-Os) 1,500 MG in Premix Bag 1 BAG IVPB SCH (11:15)
[2018-01-27] MEDS ORDERED: Ziprasidone 20 MG VIAL IM PRN (11:45)
--- NOTE | 2018-01-27 14:36 | PDOC.PN ---
- Subjective Encounter Start Date: 01/27/18 Encounter Start Time: 09:50 -: non-verbal follow up for metabolic encephalopathy, fever and severe sepsis, MRSA infection of posterior scalp. Pt unchanged, unable to get NG tube placed. review of chart shows pt not on anti-epileptics, and listed with Keppra allergy. contacted his mother, who said pt has never had, but because she knew one person who was put on it - and this person became suicidal and killed his family - that she always said the patient could not be put on it. discussed adn consulted palliative care, YAHIR Clancy, knows this patient well and this is mumtaz a different status. decided to start Keppra and get MRI. No fevers, no N/V/d/C, no SOB, no further SVT ROS not obtainable, pt nonverbal - Objective Resuscitation Status: Resuscitation Status DNR:Do Not Resuscitate MAR Reviewed: Yes Vital Signs & Weight: Vital Signs (12 hours) Temp Pulse Resp BP Pulse Ox 01/27/18 14:19 16 96 01/27/18 11:19 99.1 F 92 22 H 149/88 H 97 01/27/18 10:09 92 16 95 01/27/18 07:31 98.7 F 92 16 135/86 98 01/27/18 06:44 96 01/27/18 06:40 93 20 96 01/27/18 04:00 101.2 F H 109 H 24 H 141/95 H 98 01/27/18 03:01 109 H 18 96 Weight Admit Weight 173 lb 9.6 oz Weight 170 lb 9.6 oz I&O: 01/26/18 01/27/18 01/28/18 06:59 06:59 06:59 Intake Total 1171 2660 Balance 1171 2660 Result Diagrams: 01/27/18 04:53 01/27/18 04:53 Radiology Reviewed by me: Yes EKG Reviewed by me: Yes Phys Exam - Physical Examination Constitutional: NAD HEENT: PERRLA, moist MMs, sclera anicteric, oral pharynx no lesions Neck: no nodes, no JVD, supple, full ROM Respiratory: no wheezing, no rales, no rhonchi, clear to auscultation bilateral Cardiovascular: RRR, no significant murmur, no rub Gastrointestinal: soft, non-tender, no distention, positive bowel sounds Musculoskeletal: pulses present, edema present Lymphatic: no nodes Skin: no rash, normal turgor, cap refill <2 seconds Dx/Plan (1) Acute metabolic encephalopathy Code(s): G93.41 - METABOLIC ENCEPHALOPATHY Status: Acute Comment: MRIto r/o acute CVA and stat rt IV keppra per orders. (2) SVT (supraventricular tachycardia) Code(s): I47.1 - SUPRAVENTRICULAR TACHYCARDIA Status: Resolved Comment: need to restart po meds, but pt unable and unable ot get NG tube. follow up on afects of Keppra and result sof MRI and discuss with family feeding tubes. PC has been consulted (3) BPH (benign prostatic hyperplasia) Code(s): N40.0 - BENIGN PROSTATIC HYPERPLASIA WITHOUT LOWER URINRY TRACT SYMP Status: Chronic Qualifiers: Lower urinary tract symptom presence: unspecified whether lower urinary tract symptoms present Qualified Code(s): N40.0 - Benign prostatic hyperplasia without lower urinary tract symptoms (4) Dehydration Code(s): E86.0 - DEHYDRATION Status: Resolved (5) Dysphagia Code(s): R13.10 - DYSPHAGIA, UNSPECIFIED Status: Acute Qualifiers: Dysphagia type: unspecified Qualified Code(s): R13.10 - Dysphagia, unspecified Comment: NPO. Pt unable ot even attempt (6) History of brain tumor Code(s): Z87.898 - PERSONAL HISTORY OF OTHER SPECIFIED CONDITIONS Status: Chronic (7) History of seizure disorder Code(s): Z86.69 - PERSONAL HISTORY OF DIS OF THE NERVOUS SYS AND SENSE ORGANS Status: Chronic Comment: off meds due to inablility to swallow, start Keppra (8) History of traumatic brain injury Code(s): Z87.820 - PERSONAL HISTORY OF TRAUMATIC BRAIN INJURY Status: Chronic (9) Severe sepsis with acute organ dysfunction Code(s): A41.9 - SEPSIS, UNSPECIFIED ORGANISM; R65.20 - SEVERE SEPSIS WITHOUT SEPTIC SHOCK Status: Acute Comment: fever,t achycardia, bacterial infectio, metabolic encephalopathy. present on admit, improving. now afebrile, HR coming down, kaitlin abx, await ID and sens. Seen by ID, bone scan pending, looks like possible right posterior calvarium activity - Plan cont current plan of care, plan discussed w/ family, continue antibiotics, PT/OT , social services counselor, respiratory therapy * .
[2018-01-27] MEDS ORDERED: Potassium Chloride 40 MEQ in Premix Bag 1 BAG IVPB SCH (14:45)
[2018-01-27] MEDS: Potassium Chloride 20 MEQ in Premix Bag 1 BAG IVPB SCH ×2 (15:39→17:31)
[2018-01-27] MEDS: levETIRAcetam In NaCl (Iso-Os) 1,000 MG in Premix Bag 1 BAG IVPB SCH (20:05)
[2018-01-27 20:32] LABS: Vancomycin, Trough 8.7 ug/mL
[2018-01-28] MEDS: Dextrose 5 % And 0.9 % NaCl 1,000 ML IV SCH ×3 (04:16→22:20)
[2018-01-28 06:11] LABS: #Eosinphils 0.2 thou/uL (0.0-0.7); #Lymphocytes 1.4 thou/uL (1.20-3.40); #Monocytes 0.6 thou/uL (0.11-0.59); %Basophils 0.4 % (0.0-1.0); %Eosinophils 2.3 % (0.0-10.0); %Lymphocytes 18.9 % (21.0-51.0); %Monocytes 8.7 % (0.0-10.0); %Neutrophils 69.7 % (42.0-75.0); Hemoglobin 13.2 g/dL (14.0-18.0); Mean Corpuscular HGB CONC 35.1 g/dL (32.0-36.0); Mean Corpuscular Hemoglobin 30.2 pg (27.0-31.0); Mean Corpuscular Volume 86.1 fL (78.0-98.0); Mean Platelet Volume 6.4 fL (7.4-10.4); Platelet Count 297 thou/uL (130-400); Red Blood Cell (RBC) Count 4.36 mill/uL (4.70-6.10); White Blood Cell (WBC) Count 7.2 thou/uL (4.8-10.8)
[2018-01-28 06:23] LABS: ALT (SGPT) 39 U/L (8-55); AST (SGOT) 39 U/L (5-34); Albumin 3.6 g/dL (3.5-5.0); Alkaline Phosphatase 194 U/L (40-150); Anion Gap 17 mmol/L (10-20); BUN (Urea Nitrogen) 4 mg/dL (8.4-25.7); Calc. Creatinine Clearance 150 mL/min (70-130); Calcium 8.9 mg/dL (7.8-10.44); Carbon Dioxide 19 mmol/L (22-29); Chloride 98 mmol/L (98-107); Estimated GFR-MDRD Greater than 90; Globulin 3.4 g/dL (2.4-3.5); Glucose 159 mg/dL (70-105); Magnesium 1.7 mg/dL (1.6-2.6); Potassium 3.5 mmol/L (3.5-5.1); Sodium 130 mmol/L (136-145)
[2018-01-28] MEDS: Vancomycin HCl 1.75 GM in Sodium Chloride 0.9% 500 ML IVPB SCH ×2 (08:57→22:20)
[2018-01-28] MEDS: Enoxaparin Sodium 40 MG/0.4 ML SYRINGE SC SCH (08:58)
[2018-01-28] MEDS: levETIRAcetam In NaCl (Iso-Os) 1,000 MG in Premix Bag 1 BAG IVPB SCH ×2 (08:58→22:03)
[2018-01-28] MEDS: Famotidine/PF 20 mg/2ml Vial SLOW IVP SCH (08:58)
[2018-01-28] MEDS: lamoTRIgine 100 MG TAB PO SCH (10:06)
[2018-01-28] MEDS: ALPRAZolam 0.5 MG TAB PO SCH (10:06)
[2018-01-28] MEDS: DULoxetine 60 MG CAP PO SCH (10:06)
[2018-01-28] MEDS: Aspirin 325 MG TAB PO SCH (10:06)
[2018-01-28] MEDS: Metoprolol Tartrate 25 MG TAB PO SCH (10:13)
[2018-01-28] MEDS: Polyethylene Glycol 3350 17 GM Packet PO SCH (10:14)
--- NOTE | 2018-01-28 18:58 | MRI ---
BRAIN MRI WITHOUT CONTRAST: 01/28/18 HISTORY: Altered mental status. Seizure. Evaluate for CVA. COMPARISON: None. TECHNIQUE: Brain MRI is performed without contrast. Multisequential, multiplanar imaging is performed. FINDINGS: There is evidence of hemosiderin deposition in the right parietal lobe A small amount of hemosiderin is also suspected in the left occipitoparietal region. 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 There are extensive T2 and FLAIR white matter hyp erintensities due to malacic and gliotic changes. there is symmetric appearance of the hippocampi. Ov erall, there is significant brain volume loss along the right occipitoparietal cerebrum. The remainde r of the cerebrum demonstrates cortical ramirez-white matter differentiation. There is dilatation of the ventricular system that is greater than expected for the overall degree of atrophy. Central arterial flow voids are maintained. There is restricted diffusion involving the left occipita l lobe compatible with infarct. There is associated T2 hyperintensity. A small focus of restricted di ffusion in the left periventricular white matter near the occipital horn of the lateral ventricle is also noted. IMPRESSION: 1. 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 2. Acute infarct involving the medial left occipital lobe. 3. Left PRESS WORKER HELPER distribution infarct. POS: WAYNE
[2018-01-29] MEDS: ALPRAZolam 0.5 MG TAB PO SCH ×2 (02:20→09:09)
[2018-01-29] MEDS: Atorvastatin Calcium 10 MG TAB PO SCH (02:20)
[2018-01-29] MEDS: Famotidine/PF 20 mg/2ml Vial SLOW IVP SCH ×3 (02:21→21:31)
[2018-01-29] MEDS: lamoTRIgine 100 MG TAB PO SCH ×2 (02:21→09:10)
[2018-01-29] MEDS: Tamsulosin HCl 0.4 MG CAP PO SCH (02:22)
[2018-01-29] MEDS: Dextrose 5 % And 0.9 % NaCl 1,000 ML IV SCH ×2 (06:42→13:07)
[2018-01-29] MEDS: Acyclovir Sodium 730 MG in Sodium Chloride 0.9% 100 ML IVPB SCH (06:48)
[2018-01-29] MEDS ORDERED: Lorazepam 2 MG/ML VIAL ONE (07:16)
[2018-01-29] MEDS ORDERED: Fosphenytoin Sodium 150 MG in Sodium Chloride 0.9% 50 ML IVPB ONE (07:30)
[2018-01-29 07:39] LABS: #Basophils 0.1 thou/uL (0.0-0.2); #Eosinphils 0.5 thou/uL (0.0-0.7); #Lymphocytes 2.2 thou/uL (1.20-3.40); #Monocytes 0.9 thou/uL (0.11-0.59); #Neutrophils 6.5 thou/uL (1.40-6.50); %Basophils 0.5 % (0.0-1.0); %Lymphocytes 21.9 % (21.0-51.0); %Neutrophils 63.7 % (42.0-75.0); Hemoglobin 13.4 g/dL (14.0-18.0); Mean Corpuscular HGB CONC 33.8 g/dL (32.0-36.0); Mean Corpuscular Volume 88.8 fL (78.0-98.0); Mean Platelet Volume 6.5 fL (7.4-10.4); Platelet Count 380 thou/uL (130-400); RBC Distribution Width 12.1 % (11.5-14.5); Red Blood Cell (RBC) Count 4.47 mill/uL (4.70-6.10); White Blood Cell (WBC) Count 10.2 thou/uL (4.8-10.8)
[2018-01-29 07:49] LABS: ALT (SGPT) 61 U/L (8-55); AST (SGOT) 62 U/L (5-34); Albumin 3.8 g/dL (3.5-5.0); Alkaline Phosphatase 226 U/L (40-150); Anion Gap 23 mmol/L (10-20); BUN (Urea Nitrogen) 6 mg/dL (8.4-25.7); Bilirubin, Total 1.2 mg/dL (0.2-1.2); Calc. Creatinine Clearance 129 mL/min (70-130); Carbon Dioxide 13 mmol/L (22-29); Chloride 94 mmol/L (98-107); Estimated GFR-MDRD Greater than 90; Globulin 3.6 g/dL (2.4-3.5); Glucose 137 mg/dL (70-105); Magnesium 1.7 mg/dL (1.6-2.6); Potassium 3.1 mmol/L (3.5-5.1); Protein, Total 7.4 g/dL (6.0-8.3); Sodium 127 mmol/L (136-145)
[2018-01-29] MEDS: Aspirin 325 MG TAB PO SCH (09:09)
[2018-01-29] MEDS: DULoxetine 60 MG CAP PO SCH (09:09)
[2018-01-29] MEDS: Fosphenytoin Sodium 100 MG in Sodium Chloride 0.9% 50 ML IVPB SCH ×2 (09:10→17:26)
[2018-01-29] MEDS: Polyethylene Glycol 3350 17 GM Packet PO SCH (09:11)
[2018-01-29] MEDS: Metoprolol Tartrate 25 MG TAB PO SCH (09:11)
[2018-01-29] MEDS: Enoxaparin Sodium 40 MG/0.4 ML SYRINGE SC SCH (09:21)
[2018-01-29] MEDS: Vancomycin HCl 1.75 GM in Sodium Chloride 0.9% 500 ML IVPB SCH ×2 (09:22→23:08)
[2018-01-29] MEDS: levETIRAcetam In NaCl (Iso-Os) 1,000 MG in Premix Bag 1 BAG IVPB SCH ×2 (09:24→21:31)
--- NOTE | 2018-01-29 14:57 | EKG ---
Test Reason : CODE GREEN Blood Pressure : / mmHG Vent. Rate : 218 BPM Atrial Rate : 218 BPM P-R Int : 000 ms QRS Dur : 078 ms QT Int : 190 ms P-R-T Axes : 046 016 252 degrees QTc Int : 361 ms Sinus tachycardia CE SVT Marked ST abnormality, possible inferior subendocardial injury Marked ST abnormality, possible anterolateral subendocardial injury Abnormal ECG When compared with ECG of 24-JAN-2018 09:40, (Unconfirmed) Vent. rate has increased BY [address] now depressed in Inferior leads ST now depressed in Lateral leads Confirmed by SHANNON YOUNG MD ([id number]) on 01/29/2018 2:57:28 PM Referred By: SILVIA Confirmed By:SHANNON YOUNG MD
--- NOTE | 2018-01-29 14:58 | EKG ---
Test Reason : CODE GREEN/P ADENOSI Blood Pressure : / mmHG Vent. Rate : 125 BPM Atrial Rate : 125 BPM P-R Int : 150 ms QRS Dur : 084 ms QT Int : 286 ms P-R-T Axes : 055 -02 012 degrees QTc Int : 412 ms Sinus tachycardia Nonspecific ST abnormality Abnormal ECG Confirmed by SHANNON YOUNG MD ([id number]) on 01/29/2018 2:57:39 PM Referred By: SILVIA Confirmed By:SHANNON YOUNG MD
--- NOTE | 2018-01-29 15:16 | PDOC.PN ---
- Subjective Encounter Start Date: 01/28/18 Encounter Start Time: 12:50 -: non-verbal Pt may be a little more alert. No fevers no avter night events, no N/v. Attempted to call Momo PURCELL, but no answer, left message, set to have a family meeting at 1630 ROS not obtainable - Objective Resuscitation Status: Resuscitation Status DNR:Do Not Resuscitate MAR Reviewed: Yes Vital Signs & Weight: Vital Signs (12 hours) Temp Pulse Pulse Pulse Resp Resp Resp 01/29/18 12:00 100.5 F H 113 H 18 01/29/18 10:27 109 H 18 01/29/18 08:00 99.8 F H 109 H 18 01/29/18 07:40 126 H 18 01/29/18 07:13 127 H 126 H 24 H 18 01/29/18 06:22 104 H 18 01/29/18 05:47 101.3 F H 106 H 23 H 01/29/18 04:20 100 18 BP BP BP Pulse Ox Pulse Ox Pulse Ox 01/29/18 12:00 170/96 H 100 01/29/18 10:27 95 01/29/18 08:00 96 01/29/18 07:40 132/84 96 01/29/18 07:13 167/93 H 132/84 97 95 01/29/18 06:22 94 L 01/29/18 05:47 128/91 H 91 L 01/29/18 04:20 93 L Weight Admit Weight 173 lb 9.6 oz Weight 166 lb 4.8 oz I&O: 01/28/18 01/29/18 01/30/18 06:59 06:59 06:59 Intake Total 3618 2323 Balance 3618 2323 Result Diagrams: 01/29/18 07:25 01/29/18 07:25 Additional Labs: Accuchecks 01/29/18 07:20 POC Glucose 137 H Phys Exam - Physical Examination Constitutional: NAD HEENT: PERRLA, moist MMs, sclera anicteric, oral pharynx no lesions Neck: no nodes, no JVD Respiratory: no wheezing, no rales, no rhonchi, clear to auscultation bilateral Cardiovascular: RRR, no significant murmur, no rub Gastrointestinal: soft, non-tender, no distention, positive bowel sounds Musculoskeletal: pulses present, edema present Lymphatic: no nodes Skin: no rash, normal turgor, cap refill <2 seconds Dx/Plan (1) Acute metabolic encephalopathy Code(s): G93.41 - METABOLIC ENCEPHALOPATHY Status: Acute Comment: MRI to r/ o acute CVA and started IV keppra per orders. (2) SVT (supraventricular tachycardia) Code(s): I47.1 - SUPRAVENTRICULAR TACHYCARDIA Status: Resolved Comment: need to restart po meds, but pt unable and unable ot get NG tube. follow up on afects of Keppra and result sof MRI and discuss with family feeding tubes. PC has been consulted (3) BPH (benign prostatic hyperplasia) Code(s): N40.0 - BENIGN PROSTATIC HYPERPLASIA WITHOUT LOWER URINRY TRACT SYMP Status: Chronic Qualifiers: Lower urinary tract symptom presence: unspecified whether lower urinary tract symptoms present Qualified Code(s): N40.0 - Benign prostatic hyperplasia without lower urinary tract symptoms (4) Dehydration Code(s): E86.0 - DEHYDRATION Status: Resolved (5) Dysphagia Code(s): R13.10 - DYSPHAGIA, UNSPECIFIED Status: Acute Qualifiers: Dysphagia type: unspecified Qualified Code(s): R13.10 - Dysphagia, unspecified Comment: NPO. Pt unable ot even attempt (6) History of brain tumor Code(s): Z87.898 - PERSONAL HISTORY OF OTHER SPECIFIED CONDITIONS Status: Chronic (7) History of seizure disorder Code(s): Z86.69 - PERSONAL HISTORY OF DIS OF THE NERVOUS SYS AND SENSE ORGANS Status: Chronic Comment: off meds due to inablility to swallow, start Keppra (8) History of traumatic brain injury Code(s): Z87.820 - PERSONAL HISTORY OF TRAUMATIC BRAIN INJURY Status: Chronic (9) Severe sepsis with acute organ dysfunction Code(s): A41.9 - SEPSIS, UNSPECIFIED ORGANISM; R65.20 - SEVERE SEPSIS WITHOUT SEPTIC SHOCK Status: Acute Comment: fever,t achycardia, bacterial infectio, metabolic encephalopathy. present on admit, improving. now afebrile, HR coming down, kaitlin abx, await ID and sens. Seen by ID, bone scan pending, looks like possible right posterior calvarium activity - Plan cont current plan of care, continue antibiotics, social services technician * . follow up MRI and contact family with results.
--- NOTE | 2018-01-29 15:19 | PDOC.PN ---
- Subjective Encounter Start Date: 01/29/18 Encounter Start Time: 07:00 -: non-verbal code green, pt actively seizing, given ativan and aborted. vitals stable, labs ordered and reviewed. family headed in febrile to 101.3, no other acute events nonverbal, ROS not obtainable MRI showed acute infart in NUT FEEDER distribution in medial left occitipal lobe - Objective Resuscitation Status: Resuscitation Status DNR:Do Not Resuscitate MAR Reviewed: Yes Vital Signs & Weight: Vital Signs (12 hours) Temp Pulse Pulse Pulse Resp Resp Resp 01/29/18 12:00 100.5 F H 113 H 18 01/29/18 10:27 109 H 18 01/29/18 08:00 99.8 F H 109 H 18 01/29/18 07:40 126 H 18 01/29/18 07:13 127 H 126 H 24 H 18 01/29/18 06:22 104 H 18 01/29/18 05:47 101.3 F H 106 H 23 H 01/29/18 04:20 100 18 BP BP BP Pulse Ox Pulse Ox Pulse Ox 01/29/18 12:00 170/96 H 100 01/29/18 10:27 95 01/29/18 08:00 96 01/29/18 07:40 132/84 96 01/29/18 07:13 167/93 H 132/84 97 95 01/29/18 06:22 94 L 01/29/18 05:47 128/91 H 91 L 01/29/18 04:20 93 L Weight Admit Weight 173 lb 9.6 oz Weight 166 lb 4.8 oz I&O: 01/28/18 01/29/18 01/30/18 06:59 06:59 06:59 Intake Total 3618 2323 Balance 3618 2323 Result Diagrams: 01/29/18 07:25 01/29/18 07:25 Additional Labs: Accuchecks 01/29/18 07:20 POC Glucose 137 H Radiology Reviewed by me: Yes Phys Exam - Physical Examination actively seizing, on left side Neck: no nodes JVD Respiratory: no wheezing, no rales, no rhonchi, clear to auscultation bilateral tachy, regular Gastrointestinal: soft, non-tender, no distention, positive bowel sounds Musculoskeletal: no edema tonic clonic seizure Lymphatic: no nodes Skin: no rash, normal turgor, cap refill <2 seconds Dx/Plan (1) Acute metabolic encephalopathy Code(s): G93.41 - METABOLIC ENCEPHALOPATHY Status: Acute Comment: MRI to r/ o acute CVA and started IV keppra per orders. Add in fosphenytoin and get LP. Neuro consult requested (2) SVT (supraventricular tachycardia) Code(s): I47.1 - SUPRAVENTRICULAR TACHYCARDIA Status: Resolved Comment: need to restart po meds, but pt unable and unable ot get NG tube. follow up on afects of Keppra and result sof MRI and discuss with family feeding tubes. PC has been consulted (3) BPH (benign prostatic hyperplasia) Code(s): N40.0 - BENIGN PROSTATIC HYPERPLASIA WITHOUT LOWER URINRY TRACT SYMP Status: Chronic Qualifiers: Lower urinary tract symptom presence: unspecified whether lower urinary tract symptoms present Qualified Code(s): N40.0 - Benign prostatic hyperplasia without lower urinary tract symptoms (4) Dehydration Code(s): E86.0 - DEHYDRATION Status: Resolved (5) Dysphagia Code(s): R13.10 - DYSPHAGIA, UNSPECIFIED Status: Acute Qualifiers: Dysphagia type: unspecified Qualified Code(s): R13.10 - Dysphagia, unspecified Comment: NPO. Pt unable ot even attempt (6) History of brain tumor Code(s): Z87.898 - PERSONAL HISTORY OF OTHER SPECIFIED CONDITIONS Status: Chronic (7) History of seizure disorder Code(s): Z86.69 - PERSONAL HISTORY OF DIS OF THE NERVOUS SYS AND SENSE ORGANS Status: Chronic Comment: off meds due to inablility to swallow, start Keppra (8) History of traumatic brain injury Code(s): Z87.820 - PERSONAL HISTORY OF TRAUMATIC BRAIN INJURY Status: Chronic (9) Severe sepsis with acute organ dysfunction Code(s): A41.9 - SEPSIS, UNSPECIFIED ORGANISM; R65.20 - SEVERE SEPSIS WITHOUT SEPTIC SHOCK Status: Acute Comment: fever,t achycardia, bacterial infectio, metabolic encephalopathy. present on admit, improving. now afebrile, HR coming down, kaitlin abx, await ID and sens. Seen by ID, bone scan pending, looks like possible right posterior calvarium activity - Plan cont current plan of care, plan discussed w/ family, continue antibiotics * . follow up on LP. if incidated infection or or neuro thinks reversible, ? FT
--- NOTE | 2018-01-29 15:22 | PDOC.EVN ---
Event Note - Event Note Event Note: Advanced care planning. Met with MPOA, brother Momo, his and patients mother. discussed current issues and pt has advanced directive. discussed TF if patient has something felt to be reversible, comfort care if not , and brother will discuss withpt's daughter if he would want to return to his prior state if possible or focus on comfort. LP okayed by family, will ask neuro to see 24 minutes spent at the bedside talking with family regarding ACP
[2018-01-29 15:39] LABS: Color Of CSF Supernatant COLORLESS (Colorless); Tube # 1; Unspun CSF Color COLORLESS (Colorless)
--- NOTE | 2018-01-29 15:43 | RAD ---
LUMBAR PUNCTURE WITH FLUOROSCOPIC GUIDANCE: HISTORY: Altered mental status. Evaluate for infection. COMPARISON: None. EXPOSURE: 0.3 minutes, 216.6 mGy*^m2. FINDINGS: The initial labor supervisor radiograph lumbar spine demonstrates extensive fusion change at L3, L4, L5, and L6. Note, there appear to be 6 lumbar-type vertebral bodies. No evidence of perihardware lucency. Successful lumbar puncture with fluoroscopic guidance. A total of 9 cc of clear CSF was obtained. TECHNIQUE: Consent was obtained to perform a lumbar puncture with fluoroscopic guidance. The L1-L2 level is mickey med appropriate. The skin was prepped and draped in sterile fashion. 1% Lidocaine buffered with sod ium bicarbonate was used for local anesthesia. Under fluoroscopic guidance, a 22-gauge spinal needle was advanced into the CSF space. Via a short tubing catheter, a total of 9 cc of clear CSF was wayne ected. The patient tolerated the procedure well. No immediate or postprocedure complication. IMPRESSION: Successful lumbar puncture for cerebrospinal fluid acquisition. POS: WAYNE
[2018-01-29 15:52] LABS: CSF, Glucose 54 mg/dl (40-70); CSF, Protein 154 mg/dL (15-40)
[2018-01-29 16:02] LABS: CSF Source CSF; Clarity Hazy (Clear); RBC Count - Manual 2 /cumm (None Seen); Tube # 4; WBC/NonHematics Count - Manual 470 /cumm (0-5)
[2018-01-29 16:34] LABS: Cell Count Non Hematic 35 %; Lymphocytes 23 %; Segmented Neutrophils 40 %
[2018-01-29] MEDS ORDERED: Acyclovir Sodium 900 MG in Sodium Chloride 0.9% 100 ML IVPB SCH (18:00)
[2018-01-29 19:07] LABS: Vancomycin, Trough 15.7 ug/mL
[2018-01-30] MEDS: Acetaminophen 325 MG Suppository PR PRN ×3 (00:04→16:52)
[2018-01-30] MEDS ORDERED: Lorazepam 2 MG/ML VIAL ONE (00:33)
[2018-01-30] MEDS ORDERED: Lorazepam 2 MG/ML VIAL SLOW IVP PRN (00:42)
[2018-01-30 00:48] LABS: #Basophils 0.1 thou/uL (0.0-0.2); #Eosinphils 0.4 thou/uL (0.0-0.7); #Lymphocytes 1.8 thou/uL (1.20-3.40); #Monocytes 0.9 thou/uL (0.11-0.59); #Neutrophils 6.6 thou/uL (1.40-6.50); %Basophils 0.6 % (0.0-1.0); %Eosinophils 4.6 % (0.0-10.0); %Monocytes 9.2 % (0.0-10.0); %Neutrophils 67.7 % (42.0-75.0); Hemoglobin 13.9 g/dL (14.0-18.0); Mean Corpuscular HGB CONC 35.7 g/dL (32.0-36.0); Mean Corpuscular Hemoglobin 30.8 pg (27.0-31.0); Mean Corpuscular Volume 86.3 fL (78.0-98.0); Platelet Count 357 thou/uL (130-400); RBC Distribution Width 12.2 % (11.5-14.5); White Blood Cell (WBC) Count 9.7 thou/uL (4.8-10.8)
--- NOTE | 2018-01-30 00:49 | PDOC.EVN ---
Event Note - Event Note Event Note: code salvatore called for sz which self aborted by the time of my arrival to bedside minutes after first s, pt had a second sz that was aborted with ativan 2mg IV x1 pts daughter at bedside pt post ictal but responding verbally exam awake, occ follows simple commands s1 s2 no m/r/g, pulses 2+ bl upper ext limited anterior respiratory exam demonstrating coarseness throughout and concern for possible bibasilar crackles labs from am reviewed plan prn ativan written for pt with hx of sz, acute CVA, currently on keppra and phosphenytoin ? would be helpful to increase keppra dose? t/c increase if continued breakthrough seizures will check serum antiepileptic levels neuro c/s check stat CXR, CMP, CBC followup cxr for concern of aspiration d/w pt's dtr at bedside transfer to [facility] greater than 30 min critical care time
[2018-01-30 01:10] LABS: ALT (SGPT) 61 U/L (8-55); AST (SGOT) 54 U/L (5-34); Albumin 3.6 g/dL (3.5-5.0); Alkaline Phosphatase 214 U/L (40-150); Anion Gap 19 mmol/L (10-20); BUN (Urea Nitrogen) 6 mg/dL (8.4-25.7); Calc. Creatinine Clearance 144 mL/min (70-130); Calcium 8.9 mg/dL (7.8-10.44); Carbon Dioxide 16 mmol/L (22-29); Chloride 99 mmol/L (98-107); Estimated GFR-MDRD Greater than 90; Globulin 3.5 g/dL (2.4-3.5); Glucose 126 mg/dL (70-105); Potassium 3.7 mmol/L (3.5-5.1); Protein, Total 7.1 g/dL (6.0-8.3); Sodium 130 mmol/L (136-145)
[2018-01-30 01:13] LABS: Troponin I 0.028 ng/mL (< 0.028)
[2018-01-30] MEDS: Fosphenytoin Sodium 100 MG in Sodium Chloride 0.9% 50 ML IVPB SCH ×4 (02:00→17:03)
[2018-01-30] MEDS: Acyclovir Sodium 730 MG in Sodium Chloride 0.9% 100 ML IVPB SCH ×3 (02:29→17:03)
[2018-01-30] MEDS: lamoTRIgine 100 MG TAB PO SCH ×3 (02:38→21:54)
[2018-01-30] MEDS: Atorvastatin Calcium 10 MG TAB PO SCH ×2 (02:38→21:53)
[2018-01-30] MEDS: ALPRAZolam 0.5 MG TAB PO SCH ×3 (02:38→21:53)
[2018-01-30] MEDS: Tamsulosin HCl 0.4 MG CAP PO SCH ×2 (02:38→21:55)
[2018-01-30] MEDS: Dextrose 5 % And 0.9 % NaCl 1,000 ML IV SCH ×4 (06:35→21:45)
[2018-01-30] MEDS: Vancomycin HCl 1.75 GM in Sodium Chloride 0.9% 500 ML IVPB SCH ×2 (09:13→21:49)
[2018-01-30] MEDS: levETIRAcetam In NaCl (Iso-Os) 1,000 MG in Premix Bag 1 BAG IVPB SCH ×2 (09:13→21:31)
[2018-01-30] MEDS: Enoxaparin Sodium 40 MG/0.4 ML SYRINGE SC SCH (09:16)
[2018-01-30] MEDS: Aspirin 325 MG TAB PO SCH (09:16)
[2018-01-30] MEDS: Famotidine/PF 20 mg/2ml Vial SLOW IVP SCH ×2 (09:17→22:32)
[2018-01-30] MEDS: DULoxetine 60 MG CAP PO SCH (09:17)
[2018-01-30] MEDS: Polyethylene Glycol 3350 17 GM Packet PO SCH (09:18)
[2018-01-30] MEDS: Metoprolol Tartrate 25 MG TAB PO SCH (09:18)
--- NOTE | 2018-01-30 09:54 | RAD ---
PORTABLE CHEST: HISTORY: Seizures. FINDINGS: Poor inspiration. Lung pelayo appear clear with no evidence of focal infiltrate. IMPRESSION: Suboptimal exam due to poor inspiration. No acute process identified. POS: [facility]
--- NOTE | 2018-01-30 12:59 | PRG ---
DATE OF SERVICE: 01/30/2018 SUBJECTIVE: The patient is nonverbal. The patient's family is at the bedside including his daughter and his mother. OBJECTIVE: VITAL SIGNS: Temperature is 99.7, pulse is 115-120, respirations 18, O2 sat 93% on room air. GENERAL APPEARANCE: Patient has some occasional spontaneous movement, but it is fairly minimal. He appears to be a little bit tachypneic, but not struggling. He does not respond to external cues. HEENT: Pupils are modestly reactive. HEART: Regular and tachycardic. LUNGS: Again, he is a bit tachypneic. He does not have any specific rales, but he is having a bit o f a prolonged expiratory phase. ABDOMEN: Soft, nontender. EXTREMITIES: Warm and dry. SKIN: He has a bandage on the right scalp lesion. LABORATORY DATA: White count 9.7, hemoglobin 13.9, platelets 357,000. Sodium 130, potassium 3.7, ch loride 99, BUN 6, creatinine 0.62, glucose 126, AST is 54, ALT is 61, alkaline phosphatase 214. Cult ure on the CSF so far is negative, although the CSF did have a hazy appearance with 470 white cells, 2 red cells, 40 segs, 23 lymphocytes, 2 basophils, glucose is 54 and protein is 154. ASSESSMENT AND PLAN: 1. Febrile illness. The patient has been febrile since his admission a week ago. He has been on fa irly broad-spectrum antibiotics. The only specific known source of infection at this point is a scal p lesion growing MRSA. Difficult to believe that that would still be causing patient's fever and tac hycardia 7 days into the treatment. The bone scan did not reveal any evidence of osteomyelitis assoc iated with this. Other potential sources include a CSF, which does have some leukocytosis and slight elevation in protein. To this point, cultures are negative, will need at least one more day to foll ow up on his cultures. The patient has significant history which relate to his brain tumor and surge ry, which could be potentially harboring infection making it difficult to treat. Alternatives includ e central fever secondary to progressive degenerative brain disease resultant from his prior tumor an d surgery and intervention. Lastly, this could potentially be neuroleptic malignant syndrome as sugg ested by Dr. Moser. We will go ahead and hold his Seroquel today. 2. 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 This actually is slightly better today than it has been. 3. The patient has some chronic neurodegenerative disease. He has been on Seroquel for behavioral d isturbances. We will go ahead and hold that for now in order to see if there is any relation to the fever. 4. Seizure disorder. The patient continues to have seizures. He had another one overnight. He ten ds to respond well to the Ativan. Concerning that this is correspondence representative of the worsening neurologic al condition. Again, awaiting a Neurology consultation. DISPOSITION: The patient's family had met with Dr. Strange. Take-away from that based on the documen tation is that we are awaiting Neurology's input to see if they feel like there is anything that is m anageable here that could potentially get the patient back to his previous functional status. Once w e get adequate expert input and opinion, reassess the potential for feeding tubes with the patient, t he plan was originally to hold off unless there was some other means by which we felt the patient cou ld resume his normal functioning status; if not, then plan was to focus more on comfort measures. We will continue to have that communication with the patient's family.
--- NOTE | 2018-01-30 14:24 | EKG ---
Test Reason : AMS Blood Pressure : / mmHG Vent. Rate : 113 BPM Atrial Rate : 113 BPM P-R Int : 140 ms QRS Dur : 084 ms QT Int : 312 ms P-R-T Axes : 060 001 035 degrees QTc Int : 427 ms Sinus tachycardia Otherwise normal ECG Confirmed by MERA MAYES D.O. ([id number]), video tape editor AHSAN TURNER ([id number] on 01/30/2018 2:24:02 PM Referred By: Confirmed By:MERA MAYES D.O.
--- NOTE | 2018-01-30 18:44 | PRG ---
DATE OF SERVICE: 01/30/2018 SUBJECTIVE: Mr. Sosa has been transferred to the [facility] after seizure activity and recurrence. MRI of the brain demonstrated evidence of an acute area of infarct, which appears to be localized to the medial left occipital lobe. This is the opposite side from the scalp lesion, therefore, this appears to be a left posterior cerebral artery CVA distribution event. The patient also had a spinal fluid evaluation, which was abnormal as noted below. Currently, he is obtunded, has right gaze preference, no nystagmus noted. OBJECTIVE: VITAL SIGNS: Continue to demonstrate temperature elevation up to 101 yesterday and now is 100.4, O2 sats 96%, pulse 106, respirations 23. GENERAL: He is obtunded. He does not interact with examiner. HEENT: His pupils are about 2 mm and reactive. There is gaze preference to the right, but no nystagmus. NECK: Supple. LUNGS: Symmetric air entry. Evidence of secretions in airways with possible aspiration. HEART: S1, S2, regular rate. No S3, S4. ABDOMEN: Soft, not distended or tender. Extremities: He has diffuse stiffness noted. LABORATORY DATA: White cell count is 9.7, hemoglobin 13.9, platelets 357 with 67% neutrophils. Chemistry with a creatinine 0.62, sodium is at130, AST 54, ALT 61, alkaline phosphatase 214. Microbiology data with a spinal fluid thus far with negative Gram stain and cultures, the blood cultures are negative final results and the CSF evaluation demonstrated a 470 WBCs with 40% neutrophils, 22% lymphocytes, 2% basophils and 35 nonhematological cells, glucose 54, total protein 154, this is a fluid #4. Patient is currently on acyclovir, fosphenytoin, lorazepam, vancomycin. 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 The patient has abnormal CSF evaluation associated with a CVA. In general, CVAs may be associated with some pleocytosis in the CSFbut usually not more than 60, so this should be considered a primary SUSPENSION CORD TIER inflammatory process until proven otherwise and in view of the scalp lesion, the possibility of a subdural infection is a consideration. With parameningeal suppurative processes the neutrophil percentage is higher. MRI was done without contrast, may not been able to determine the presence of that, although one would expect at least to see fluid collection there. 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 Consultations with family have been carried out to decide on further aggressiveness of care. Aspiration with pneumonia is possible and should consider broadening antimicrobial regimen. MTDD
--- NOTE | 2018-01-30 20:12 | CON ---
DATE OF CONSULTATION: 01/30/2018 HISTORY: Barndt Sosa is a 57-year-old gentleman who is a DNR, unfortunate situation who apparent ly was transferred here last night following a code event. Apparently, a hospitalist saw the patient seizing, was given Ativan 2 mg p.r.n. He is already on Keppra and Dilantin. There was concern he was still tachypneic and tachycardic and unresponsive. Primary critical care has been asked to see the patient while he is in the [facility]. He has been here for many days, he has been seen by several different doctors. A lumbar puncture was performed yesterday. His baseline underlying problem is severe neurological impairment secondary to multiple ICU STAFF NURSE events fo r astrocytoma diagnosed in 1993. He is in correction right now here in [place]. Extensive otherwise history is outlined includes past medical history of dementia, lipidemia, dysphag ia, constipation, back pain, seizure disorders, astrocytoma, subarachnoid hemorrhage. PAST SURGERIES: Include x3, tumor resection, back surgery, right knee surgery. He is in the [facility] right now. MEDICATIONS: Xanax 0.5 Tylenol, Cymbalta 60, aspirin, Lamictal 200 twice a day, Flomax 0.4, Seroquel 100 twice a day, Lopressor 25 b.i.d. Additional medicine, he is on vancomycin, Keppra 1000 b.i.d., Dilantin, acyclovir. SOCIAL HISTORY: Tobacco: None. Alcohol: None. PHYSICAL EXAMINATION: VITAL SIGNS: Temperature 100.2, sats 90%, respirations 22, pulse 102, blood pressure 143/83. GENERAL: He is sedated. CHEST: Bilateral rhonchi. CARDIAC: Normal S1, S2. No gallops. ABDOMEN: Soft. LABORATORY DATA: White count is 9000, H&H 13 and 38, platelet count 347. Creatinine is normal. LABORATORY DATA: Unremarkable. CSF shows 40 WBCs, 54 glucose, protein 154 elevated. ASSESSMENT: 1. Abnormal cerebrospinal fluid with elevated WBCs 40. 2. Seizure disorder. 3. History of multiple craniotomies for astrocytoma. 4. Retained secretions. Await input from Infectious Disease regarding antibiotics. Pulmonary will follow while in the [facility]. as ordered. Supportive care. I would increase his Keppra to 1500 mg twice a day. Consultation note, 70 minutes of which 50% in direct patient care.
[2018-01-31] MEDS: Fosphenytoin Sodium 100 MG in Sodium Chloride 0.9% 50 ML IVPB SCH ×3 (01:51→17:42)
[2018-01-31] MEDS: Acyclovir Sodium 730 MG in Sodium Chloride 0.9% 100 ML IVPB SCH ×3 (02:34→17:42)
[2018-01-31] MEDS: Dextrose 5 % And 0.9 % NaCl 1,000 ML IV SCH ×3 (06:37→20:14)
[2018-01-31 08:53] LABS: Vancomycin, Trough 15.1 ug/mL
[2018-01-31] MEDS: Enoxaparin Sodium 40 MG/0.4 ML SYRINGE SC SCH (09:37)
[2018-01-31] MEDS: Vancomycin HCl 1.75 GM in Sodium Chloride 0.9% 500 ML IVPB SCH ×2 (09:37→20:14)
[2018-01-31] MEDS: Famotidine/PF 20 mg/2ml Vial SLOW IVP SCH ×2 (09:37→20:15)
[2018-01-31] MEDS: levETIRAcetam In NaCl (Iso-Os) 1,000 MG in Premix Bag 1 BAG IVPB SCH ×2 (09:38→20:13)
[2018-01-31] MEDS: Aspirin 325 MG TAB PO SCH (09:39)
[2018-01-31] MEDS: ALPRAZolam 0.5 MG TAB PO SCH ×2 (09:39→20:15)
[2018-01-31] MEDS: Metoprolol Tartrate 25 MG TAB PO SCH (09:40)
[2018-01-31] MEDS: DULoxetine 60 MG CAP PO SCH (09:40)
[2018-01-31] MEDS: lamoTRIgine 100 MG TAB PO SCH ×2 (09:40→20:15)
[2018-01-31] MEDS: Polyethylene Glycol 3350 17 GM Packet PO SCH (09:40)
--- NOTE | 2018-01-31 11:25 | PRG ---
DATE OF SERVICE: 01/31/2018 SUBJECTIVE: This is a 57-year-old gentleman. OBJECTIVE: VITAL SIGNS: His respirations are 32, temperature 98, pulse 99, and blood pressure is 154/86. GENERAL: Encephalopathic, no verbal communication. CHEST: Decreased breath sounds, no wheezing. CARDIAC: Normal S1 and S2, no gallops. ABDOMEN: Soft, no masses. ASSESSMENT: 1. Recurrent sepsis. 2. Multiple cranial surgeries. Infectious Disease has seen the patient. Antibiotics have been adjusted. At this stage, nothing additional to offer.
[2018-01-31] MEDS: MEROPENEM 1 GM/50 ML 1 GM in Premix Bag 1 BAG IVPB SCH ×2 (13:29→21:18)
--- NOTE | 2018-01-31 14:36 | RAD ---
ABDOMEN 1 VIEW: HISTORY: NG tube placement. FINDINGS/IMPRESSION: There is a nasogastric tube with tip directed superiorly into the gastric fundus/cardia. The bowel g as pattern is unremarkable. Postop changes of metallic hardware are seen in the lower lumbar spine. POS: WAYNE
[2018-01-31 14:44] LABS: Reference Lab Name LABCORP
--- NOTE | 2018-01-31 14:50 | CON ---
DATE OF CONSULTATION: 01/31/2018 CONSULTING PHYSICIAN: Hospitalist Service. IMPRESSION: 1. Seizure disorder. 2. Acute left occipital stroke. 3. Prior brain tumor and a prior stroke with severe neurologic injury. 4. MINISTER infectious process of undetermined etiology at this point. PLAN: 1. Continue Keppra and Dilantin intravenously. 2. Patient's family plans on hospice care if the patient does not regain the ability to swallow. HISTORIAN: Mr. Sosa is a 57-year-old man with a long history of medical problems. He has been cared for by his family in their home prior to this admission. He was quite debilitated and was mini jessie able to walk. He required assistance in feeding as well as all other activities of daily livin g. He has a history of a seizure disorder and has been treated with a combination of Keppra and Lami ctal, came in with neurologic changes and has undergone further evaluation. His MRI showed an acute infarct in the occipital lobe. His lumbar puncture showed elevated white count of 470 white cells an d elevated protein, suggesting an infectious process. He had a seizure 2 days ago. He has otherwise been stable for the last 24 hours. His level of responsiveness has yet to improve to his baseline. He was usually able to communicate with the family, albeit his ability carry on a conversation was l imited. PAST MEDICAL HISTORY: As listed above. ALLERGIES: None reported. SOCIAL HISTORY: No tobacco or alcohol use. FAMILY HISTORY: Noncontributory. REVIEW OF SYSTEMS: Not obtainable. PHYSICAL EXAMINATION: GENERAL: He is a well-nourished middle-aged man, appears older than his stated age. HEENT: Pupils are equal. Conjunctivae are clear. Eyes move in a conjugate fashion. His blink freq uency seems diminished on the right. Cranium normocephalic and atraumatic. NECK: No lymphadenopathy. EXTREMITIES: Some mild edema peripherally. NEUROLOGIC: Appears quite lethargic. He does not try to communicate. He will not follow any comman ds. Cranial nerve exam shows some mild right facial weakness. The tone on the right side was increa sed as compared to the left. He has upgoing toes bilaterally. No abnormal movements were seen other [place]. Gait is not testable. IMAGING: Reviewed. SUMMARY: An unfortunate middle-aged man with a significant neurologic impairment prior to developing an acute occipital lobe stroke and also an infectious process, still quite lethargic and overall his prognosis for recovery looks quite poor. Agree with current management of his seizures. I will be happy to continue to follow in his care.
--- NOTE | 2018-01-31 17:06 | PRG ---
DATE OF SERVICE: 01/31/2018 SUBJECTIVE: The patient is nonverbal. He is somewhat more awake at times than others. He is not responding to external cues. OBJECTIVE: VITAL SIGNS: T-max in the last 24 hours is 99.8. GENERAL APPEARANCE: Again, patient is not interactive with external stimuli. CARDIOVASCULAR: Heart regular rate and rhythm without murmurs. LUNGS: Clear to auscultation to the degree that they can be examined. HEART: Regular borderline tachycardia. ABDOMEN: Soft, nontender. EXTREMITIES: Warm and dry. SKIN: The lesion on the right scalp does not have significant inflammation or drainage and appears to be healing. LABORATORY DATA: Spinal fluid culture is negative. IMPRESSION AND PLAN: 1. Febrile illness. Again, the patient has methicillin-resistant Staphylococcus aureus, furuncle in the right scalp. He does have some white blood cells in the CSF. Unclear if they are related. However, the patient is covered with vancomycin. Dr. Moser saw the patient yesterday and the concerns regarding possible aspiration has broadened him out to include meropenem. Encouraged that his fever curve seems to have improved. It is also contemporaneous with the cessation of the Seroquel. It is somewhat difficult to know at this point if it is antibiotics potentially resolving infection or if it was related to discontinuing the medications. 2. Seizure disorder. The Keppra dose has been increased. He has p.r.n. Ativan still available. 3. Hyponatremia and will follow up on that again tomorrow. 4. Metabolic encephalopathy, likely related to the febrile illness. 5. Dysphagia. This appears to be related to the encephalopathy. We did replace an NG tube today. 6. History of brain cancer resulting in significant neurodegenerative decline. 7. History of supraventricular tachycardia, resuming some of his p.o. medications. 8. Cerebrovascular accident, acute. Dr. Blas has evaluated the patient today. Report pending. DISPOSITION: At this point, continue to treat with broad spectrum antibiotics. The only specific source of infection that is known is the furuncle in the scalp and some concerns for infection of the CSF. The patient has some anatomic derangement of the brain from the history of the tumor and the treatment. This would make treating CHIEF PRIVACY OFFICER infection more difficult. Now that we have the NG tube in place, I will consult a dietitian and start some feeds. If the patient can remain afebrile for a few days and we can get his nutritional status, we will reassess where his encephalopathy is at that point. Given the new strokes, it is possible that he may not have significant recovery in spite of that. The patient's family is clear that he would not want a feeding tube. Therefore, if we get to the point where he is afebrile and his nutrition is at a reasonable place and he is not responding, then they would likely go more towards hospice and comfort care. CHRIST
[2018-01-31] MEDS: Tamsulosin HCl 0.4 MG CAP PO SCH (20:14)
[2018-01-31] MEDS: Atorvastatin Calcium 10 MG TAB PO SCH (20:15)
[2018-02-01] MEDS: Acyclovir Sodium 730 MG in Sodium Chloride 0.9% 100 ML IVPB SCH ×3 (02:02→18:30)
[2018-02-01] MEDS: Fosphenytoin Sodium 100 MG in Sodium Chloride 0.9% 50 ML IVPB SCH ×3 (02:02→18:30)
[2018-02-01 04:30] LABS: Anion Gap 15 mmol/L (10-20); BUN (Urea Nitrogen) 5 mg/dL (8.4-25.7); Calc. Creatinine Clearance 146 mL/min (70-130); Calcium 8.6 mg/dL (7.8-10.44); Carbon Dioxide 22 mmol/L (22-29); Chloride 97 mmol/L (98-107); Estimated GFR-MDRD Greater than 90; Glucose 130 mg/dL (70-105); Potassium 3.5 mmol/L (3.5-5.1); Sodium 130 mmol/L (136-145)
[2018-02-01 04:34] LABS: Eosinophils 1 % (0-10); Hemoglobin 12.7 g/dL (14.0-18.0); Hypochromia SLIGHT = 6-15 cells (100X) (0-5/hpf); Lymphocytes 15 % (21-51); MDiff Complete? YES; Mean Corpuscular HGB CONC 34.2 g/dL (32.0-36.0); Mean Corpuscular Hemoglobin 29.4 pg (27.0-31.0); Mean Platelet Volume 6.3 fL (7.4-10.4); Monocytes 7 % (0-10); Neutrophil 77 % (42-75); PLT Morphology Comment Appears Adequate; Platelet Count 395 thou/uL (130-400); RBC Distribution Width 12.3 % (11.5-14.5); Red Blood Cell (RBC) Count 4.31 mill/uL (4.70-6.10); White Blood Cell (WBC) Count 8.8 thou/uL (4.8-10.8)
[2018-02-01] MEDS: Dextrose 5 % And 0.9 % NaCl 1,000 ML IV SCH ×2 (05:16→14:01)
[2018-02-01] MEDS: MEROPENEM 1 GM/50 ML 1 GM in Premix Bag 1 BAG IVPB SCH ×2 (05:16→14:01)
[2018-02-01] MEDS: lamoTRIgine 100 MG TAB PO SCH (09:13)
[2018-02-01] MEDS: Acetaminophen 325 MG Suppository PR PRN (09:14)
[2018-02-01] MEDS: Enoxaparin Sodium 40 MG/0.4 ML SYRINGE SC SCH (09:14)
[2018-02-01] MEDS: Famotidine/PF 20 mg/2ml Vial SLOW IVP SCH (09:15)
[2018-02-01] MEDS: Aspirin 325 MG TAB PO SCH (09:15)
[2018-02-01] MEDS: DULoxetine 60 MG CAP PO SCH (09:15)
[2018-02-01] MEDS: levETIRAcetam In NaCl (Iso-Os) 1,000 MG in Premix Bag 1 BAG IVPB SCH (09:15)
[2018-02-01] MEDS: Metoprolol Tartrate 25 MG TAB PO SCH (09:15)
[2018-02-01] MEDS: ALPRAZolam 0.5 MG TAB PO SCH (09:15)
[2018-02-01] MEDS: Polyethylene Glycol 3350 17 GM Packet PO SCH (09:16)
[2018-02-01] MEDS: Vancomycin HCl 1.75 GM in Sodium Chloride 0.9% 500 ML IVPB SCH (09:16)
--- NOTE | 2018-02-01 10:34 | PRG ---
DATE OF SERVICE: 02/01/2018 OBJECTIVE: VITAL SIGNS: His temperature is 101, pulse 112, respirations 20, sats are 98% on room air. NEUROLOGICAL: He remains encephalopathic. CHEST: Reveals anterior rhonchi. CARDIAC: Normal S1, S2. No gallops. ABDOMEN: Soft, no mass. LABORATORY DATA: White count 10,000, H&H is stable. Electrolytes are normal. Sodium 130. IMPRESSION: 1. Status post multiple craniotomy for astrocytoma. 2. Abnormal CSF. 3. Possible meningitis. PLAN: Infectious Disease on board. His hypertension resolved. He is on multiple antibiotics includ ing acyclovir, meropenem and vancomycin. We will follow while in the MICU.
[2018-02-01 10:54] VITALS: BP 122/88; TEMP 99.1
[2018-02-01 10:59] VITALS: BMI 24.5
--- NOTE | 2018-02-01 14:18 | PRG ---
DATE OF SERVICE: 02/01/2018 I met with the patient's daughter this morning. His brother and power of family law attorney along with his wif e and the patient's mother are here this afternoon. After considering the situation in general, they have decided to consider going in the route of hospice. They would like to consider withdrawing car e in general. Per their request, I sat with the patient's family and reviewed the MRI findings with the substance of pathology that exists there from the prior tumor as well as the new disease in the l eft posterior occipital area. I reviewed the scenario with them, as I did with the patient's yelitza r this morning. Ultimately, they have decided to pursue hospice consultation, which should happen so on and they would like to go ahead and withdraw all care, otherwise, including removing the NG tube. That order will be given. Total time in advance care planning is 18 minutes.
--- NOTE | 2018-02-01 14:20 | PRG ---
DATE OF SERVICE: 02/01/2018 SUBJECTIVE: I met with the patient's daughter this morning. I explained the fact that the patient h as been on these medications to treat the infection, yet we have not specifically identified a source . She understands there is still concern regarding the possibility of some PLATFORM WORKER infection. His abnor mal brain anatomy makes it somewhat more difficult to fully elucidate what we might be seeing there. He has been off of the Seroquel and the fevers have not abated. Therefore it is not likely medicati on related fever in regards to that medicine such as neuroleptic malignant syndrome. Could still be potentially central fevers. OBJECTIVE: VITAL SIGNS: Temperature was back up to 101.1, pulse 112, respirations 98, BP 134/87. GENERAL: The patient remains generally unresponsive to external stimuli. HEART: Tachycardic without murmurs. LUNGS: Clear. ABDOMEN: Soft, nontender. EXTREMITIES: Warm and dry. LABORATORY DATA: White count was 8.8, hemoglobin 12.7, platelets 395, sodium 130, potassium 3.5, chl oride 97, CO2 is 22, BUN is 5, creatinine is 0.61, glucose is 130, calcium 8.6. CSF culture remains negative. IMPRESSION AND PLAN: 1. Febrile illness, unclear etiology. The patient has had a CT scan of the head, chest, abdomen and pelvis, MRI of the brain, bone scan and lumbar puncture. Findings are mostly notable for MRSA furun charisse of the right calvarium scalp as well as some evidence of white blood cells in the CSF with negati ve cultures. Certainly may represent more of a viral meningitis, although the patient's fever has pe rsisted since admission and does not show any signs of abating at this point. 2. A new left posterior occipital infarct, unclear etiology. Again, the patient has significant jimenez tomical changes of the brain secondary to a prior astrocytoma with multiple craniotomies. Not actual ly sure that the patient received any radiation therapy, but could be having some worsening related t o that exposure as well. DISPOSITION: Discussed the plan with the patient's daughter. At this point, we will attempt to go a head and get him fed through the NG tube. If we can get him up to speed on the feeds and he does not have any improvement in his mental status, would need to consider potentially stopping the antibioti c interventions and reculturing. Again, no assurance that this is not something other than infection given the fact that he has continually had a normal white blood cell count throughout.
--- NOTE | 2018-02-02 15:32 | DIS ---
DATE OF ADMISSION: 01/24/2018 DATE OF DISCHARGE: 02/01/2018 DISCHARGE DIAGNOSES: 1. Febrile illness. 2. Methicillin-resistant Staphylococcus aureus furuncle of the right parietal scalp. 3. Possible meningitis. 4. Seizure disorder. 5. History of astrocytoma requiring multiple craniotomies. 6. New left occipital CVA. HISTORY: This patient is a 57-year-old male who had a history of astrocytoma requiring several crani otomies. The patient had significant debility related to that and he was in a [facility] facility. Patient was noted to have some altered mental status and fever and was subsequently brought to the hospital for evaluation. The patient had no specific obvious source of infection other than a furunc le on the right parietal scalp area. This was cultured in the emergency department and ultimately gr ew MRSA. The patient continued on broad spectrum antibiotics, but had no other identifiable sources initially. He did not initially undergo a lumbar puncture because he had significant lumbar scarring from prior surgical interventions. Also, the patient subsequently experienced some additional seizu res. He had some medication adjustments and addition of some benzodiazepines. He was seen in [facility] by Dr. Moser and we continued to investigate for possible sources of infection including getti ng consent from the family to do the lumbar puncture under ultrasound guidance. That did reveal some white blood cells, but cultures remain negative. He had a brain CT, abdomen and pelvis CT, abdomina l x-ray, chest CTA, nuclear bone scan, brain MRI and repeat x-rays of the chest and abdomen as well a s blood and urine cultures and cultures on the CSF, all of which were unremarkable with the exception of the skin lesion on the scalp which grew the MRSA. In spite of aggressive broad spectrum antibiot ics, the patient continued to be febrile. Ultimately, we discontinued the psychotropic medications t hat could have potentially been causing neuroleptic malignant syndrome fevers; however, this was unsu ccessful as well. The patient was never able to return to the point where he could communicate adequ ately. His brain imaging did ultimately reveal that he had had evidence of a new parietooccipital ar ea CVA. Attempts were made to place an NG tube; however, this was unsuccessful. The patient had betty e for an extended period without enteral feeds, we were continually having conversations with the shani dannie's family. Given the massive extent of the brain injury, it is felt that he could potentially be suffering from some central fevers as well. There was very little chance that the patient could hav e significant and meaningful recovery of his neurologic function. We were ultimately able to get an NG tube back in, but before we could even attempt to initiate this feeds, family met with me and we d iscussed the scenario without identifying a specific source and no improvement with source of infecti on or fever and without improvement with the cessation of the medications. There was a reasonable ch ance he was having some central fevers and it was also unlikely that he would recover the ability to speak or eat independently. They felt strongly that the patient would not want artificial means of f eeding and wanted to pursue hospice. With that, we discontinued all of the patient's interventions, consulted hospice and the patient will be discharged to the hospice service. Further workup and eval uation will be per the hospice team.
== END 2018-02-01 20:44 | disposition hospice, inpatient (51) | DRG 871 ==
LOC: ERS 08:56 → 2NO 12:12 → ERS 15:11 → CCU 01-25 10:00 → 2NO 01-25 10:11 → IMCU/EMU 01-30 00:49
PROVIDERS: ADMIT Internal Medicine; ATTEND Internal Medicine
PROC: 009U3ZX Drainage of Spinal Canal, Percutaneous Approach, Diagnostic (ICD-10-PCS; principal; 2018-01-29)
DX: A41.02 Sepsis due to Methicillin resistant Staphylococcus aureus (principal); G93.41 Metabolic encephalopathy; I63.9 Cerebral infarction, unspecified; G03.9 Meningitis, unspecified; I47.1 Supraventricular tachycardia; E87.1 Hypo-osmolality and hyponatremia; Z51.5 Encounter for palliative care; R65.20 Severe sepsis without septic shock; L02.821 Furuncle of head [any part, except face]; L08.9 Local infection of the skin and subcutaneous tissue, unspecified; F03.90 Unspecified dementia, unspecified severity, without behavioral disturbance, psychotic disturbance, mood disturbance, and anxiety; F48.2 Pseudobulbar affect; I10 Essential (primary) hypertension; E86.0 Dehydration; R13.10 Dysphagia, unspecified; Z66 Do not resuscitate; K21.9 Gastro-esophageal reflux disease without esophagitis; G89.4 Chronic pain syndrome; F32.9 Major depressive disorder, single episode, unspecified; E78.5 Hyperlipidemia, unspecified; H54.3 Unqualified visual loss, both eyes; Z85.841 Personal history of malignant neoplasm of brain; G40.909 Epilepsy, unspecified, not intractable, without status epilepticus; N40.0 Benign prostatic hyperplasia without lower urinary tract symptoms; Z87.820 Personal history of traumatic brain injury
CPT/HCPCS: 36415; 36416; 51701; 62270; 70450; 70551; 71045; 71275; 74018; 74176; 78315; 80048; 80053; 80177; 80202; 81003; 82010; 82553; 82945; 83605; 83735; 83930; 84100; 84157; 84484; 85025; 85060; 86140; 87040; 87070; 87077; 87086; 87186; 87205; 89051; 93005; 93010; 94640; 94760; 96361; 96365; 96375; A4216; A9503; J0133; J1650; J1953; J2060; J2185; J2270; J2543; J3370; J3480; J3486; J3490; J7042; J7050; J7620; Q2009; S0028